=== PATIENT | female | born 1955 | race Caucasian/White ===

== ENCOUNTER 2019-12-20 06:37 | Outpatient (REF) | payer OTHER, SELFPAY ==
[2019-12-20 11:09] LABS: MANUAL DIFF FLAG NO
[2019-12-20 11:22] LABS: Basophils Percent Auto 0.4 % (0-2); Eosinophils Absolute Auto 0.2 X10*3/uL (0.0-0.4); Eosinophils Percent Auto 3.9 % (0-4); Hematocrit 43.1 % (37-47); Hemoglobin 14.1 g/dl (12.0-16.0); Imm Gran Abs Auto 0.02 X10*3/uL (0.00-0.03); Imm Gran Pct Auto 0.4 % (0.0-0.4); Lymphocytes Absolute Auto 1.4 X10*3/uL (1.2-4.9); Mean Corpuscular HGB Conc 32.7 g/dl (31.0-35.0); Mean Corpuscular Hemoglobin 31.6 pg (27.0-33.0); Mean Corpuscular Volume 96.6 fL (80-98); Mean Platelet Volume 9.4 fL (9.4-12.3); Monocytes Absolute Auto 0.5 X10*3/uL (0.1-1.2); Neutrophils Percent Auto 59.3 % (45-73); Platelet Count 252 X10*3/uL (160-400); Red Blood Count 4.46 X10*6/uL (4.20-5.50); Red Cell Distribution Width 13.1 % (11.0-16.0); White Blood Count 5.1 X10*3/uL (4.8-10.8)
[2019-12-20 11:45] LABS: Alanine Aminotransferase 12 U/L (0-31); Albumin Level 4.5 g/dL (3.5-5.0); Alkaline Phosphatase 66 U/L (39-117); Aspartate Amino Transferase 16 U/L (5-31); Bilirubin Direct 0.2 mg/dL (0.0-0.5); Bilirubin Total 0.4 mg/dL (0.0-1.0); Total Protein 6.9 g/dL (6.5-8.0)
[2019-12-21 07:32] LABS: Triiodothyronine T3 Total 83 ng/dL (76-181)
== END 2019-12-20 06:38 | disposition home or self-care (01) ==
LOC: HO.HMGCLDS 06:37
PROVIDERS: PCP Internal Medicine; Visit Provider Internal Medicine
DX: E05.00 Thyrotoxicosis with diffuse goiter without thyrotoxic crisis or storm (principal)
CPT/HCPCS: 36415; 80076; 84439; 84443; 84480; 85025

== ENCOUNTER → 2020-06-02 08:41 | Outpatient (BNVA) | payer OTHER, SELFPAY | PROVIDERS: PCP Internal Medicine; Visit Provider Surgery ==

== ENCOUNTER 2020-06-08 06:19 | Outpatient (REF) | payer OTHER, SELFPAY ==
[2020-06-08 12:02] LABS: Blood Urea Nitrogen 13 mg/dL (9-16); Estimated Glomerular Filt Rate > 60
[2020-06-08 12:15] LABS: Thyroid Stimulating Hormone 0.94 uIU/mL (0.32-4.0)
== END 2020-06-08 06:20 | disposition home or self-care (01) ==
LOC: HO.HMGCLDS 06:19
PROVIDERS: Visit Provider Surgery
DX: E05.00 Thyrotoxicosis with diffuse goiter without thyrotoxic crisis or storm (principal); R07.89 Other chest pain
CPT/HCPCS: 36415; 82565; 84443; 84520

== ENCOUNTER 2020-06-09 07:28 | Outpatient (REF) | payer OTHER, SELFPAY ==
--- NOTE | ~2020-06-09 | CT_ITS ---
EXAMINATION: CT CHEST WITH CONTRAST CLINICAL INFORMATION: Malignant neoplasm of unspecified site. COMPARISON: None. TECHNIQUE: Multidetector volumetric CT imaging of the chest was obtained after the administration of 65 mL of Omnipaque 350 intravenous contrast without immediate adverse reactions. Axial MIP volume rendering provided. Sagittal and coronal reformatted images were obtained. This CT examination was performed using dose optimization techniques as appropriate, variously including the following: *Automated exposure control *Adjustment of mA and/or kV according to patient size (this includes techniques or standardized protocols for targeted exams where dose is matched to indication/reason for exam; i.e. extremities or head) *Use of iterative reconstruction technique DLP: 135 mGy-cm. 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 LUNGS: Lungs are well expanded. There is right apical airspace disease suggestive of infiltrate. Underlying malignancy is strongly suspected as there is moderate extrathoracic soft tissue thickening along the right supra clavicular fossa. Rest of lungs are clear. MEDIASTINUM: The thyroid lobes are asymmetrical with left slightly larger. The central trachea and the bronchi widely patent. Heart size and the great vessels are normal caliber. No abnormal size mediastinal lymph nodes or mass seen. There is no pericardial effusion. PLEURA: There is moderate right apical pleural thickening. No evidence of effusion. AXILLA: No abnormal lymph nodes seen. There is evidence of right mastectomy and a left breast prosthesis. UPPER ABDOMEN: Visualized liver is diffusely attenuated. No focal lesion seen. There is no hepatomegaly. The spleen, pancreas and bilateral adrenal glands are unremarkable. OSSEOUS STRUCTURES: No lytic or sclerotic process seen. CT/CT chest w con IMPRESSION: Right apical airspace disease, likely infiltrate. In addition, there is a soft tissue density extending extrathoracic in the supraclavicular fossa suspicious for underlying mass. No bony destructive changes seen involving the 1st or 2nd ribs. Consider PET/CT exam by further evaluation. Right mastectomy with left breast prosthesis. No abnormal axillary or mediastinal lymph nodes.
== END 2020-06-09 07:29 | disposition home or self-care (01) ==
LOC: HO.CT 07:28
PROVIDERS: PCP Internal Medicine; Visit Provider Surgery
DX: C50.911 Malignant neoplasm of unspecified site of right female breast (principal); C50.912 Malignant neoplasm of unspecified site of left female breast; R07.89 Other chest pain
CPT/HCPCS: 71260; Q9967

== ENCOUNTER 2020-06-19 06:19 | Outpatient (REF) | payer OTHER, SELFPAY ==
[2020-06-19 12:28] LABS: Free T4 (Free Thyroxine) 0.96 ng/dL (0.71-1.85)
[2020-06-20 06:07] LABS: Triiodothyronine T3 Free 2.9 pg/mL (2.3-4.2)
[2020-06-24 00:12] LABS: FT4 by Equilib. Dialysis 1.6 ng/dL (0.9-2.2)
== END 2020-06-19 06:20 | disposition home or self-care (01) ==
LOC: HO.HMGCLDS 06:19
PROVIDERS: PCP Internal Medicine; Visit Provider Internal Medicine
DX: E05.00 Thyrotoxicosis with diffuse goiter without thyrotoxic crisis or storm (principal)
CPT/HCPCS: 36415; 84439; 84481

== ENCOUNTER → 2020-06-26 07:31 | Outpatient (BNVA) | payer OTHER, SELFPAY | PROVIDERS: PCP Internal Medicine; Referring Provider Internal Medicine; Visit Provider Internal Medicine ==

== ENCOUNTER 2020-06-27 06:20 | Outpatient (REF) | payer OTHER, SELFPAY ==
[2020-06-27 11:15] LABS: MANUAL DIFF FLAG NO
[2020-06-27 11:24] LABS: Basophils Percent Auto 0.7 % (0-2); Eosinophils Absolute Auto 0.2 X10*3/uL (0.0-0.4); Eosinophils Percent Auto 5.4 % (0-4); Hematocrit 41.9 % (37-47); Hemoglobin 13.7 g/dl (12.0-16.0); Imm Gran Abs Auto 0.02 X10*3/uL (0.00-0.03); Imm Gran Pct Auto 0.5 % (0.0-0.4); Lymphocytes Absolute Auto 1.7 X10*3/uL (1.2-4.9); Lymphocytes Percent Auto 39.6 % (20-40); Mean Corpuscular HGB Conc 32.7 g/dl (31.0-35.0); Mean Corpuscular Hemoglobin 31.6 pg (27.0-33.0); Mean Corpuscular Volume 96.8 fL (80-98); Monocytes Absolute Auto 0.4 X10*3/uL (0.1-1.2); Monocytes Percent Auto 8.9 % (2-11); Neutrophils Absolute Auto 1.9 X10*3/uL (2.0-8.3); Neutrophils Percent Auto 44.9 % (45-73); Platelet Count 238 X10*3/uL (160-400); Red Blood Count 4.33 X10*6/uL (4.20-5.50); Red Cell Distribution Width 12.5 % (11.0-16.0); White Blood Count 4.3 X10*3/uL (4.8-10.8)
[2020-06-27 11:55] LABS: Alanine Aminotransferase 15 U/L (0-31); Albumin Level 4.2 g/dL (3.5-5.0); Alkaline Phosphatase 64 U/L (39-117); Anion Gap 12 (12-20); Aspartate Amino Transferase 17 U/L (5-31); Bilirubin Total 0.5 mg/dL (0.0-1.0); Blood Urea Nitrogen 15 mg/dL (9-16); Calcium 9.1 mg/dL (8.4-10.2); Carbon Dioxide 28 mmol/L (22-29); Chloride 104 mmol/L (96-108); Estimated Glomerular Filt Rate > 60; Glucose Random 82 mg/dL (60-115); Sodium 140 mmol/L (135-145); Total Protein 6.6 g/dL (6.5-8.0)
[2020-06-27 12:03] LABS: Erythrocyte Sedimentation Rate 13 MM/HR (0-20)
[2020-06-28 12:32] LABS: CA 27.29 25 U/mL (<38)
== END 2020-06-27 06:21 | disposition home or self-care (01) ==
LOC: HO.HMGCLDS 06:20
PROVIDERS: PCP Internal Medicine; Visit Provider Internal Medicine Medical Oncology
DX: R63.6 Underweight (principal); C50.912 Malignant neoplasm of unspecified site of left female breast; C50.911 Malignant neoplasm of unspecified site of right female breast
CPT/HCPCS: 36415; 80053; 85025; 85652; 86300

== ENCOUNTER 2020-08-01 07:35 | Outpatient (REF) | payer OTHER, SELFPAY ==
--- NOTE | ~2020-08-01 | US_ITS ---
EXAMINATION: US THYROID CLINICAL INFORMATION: Nontoxic single thyroid nodule. COMPARISON: Ultrasound soft tissue head/neck thyroid dated 09/23/2018. TECHNIQUE: Linear transducer grayscale and color Doppler examination with attention to the region of the thyroid. FINDINGS: SIZE: Measurements of the thyroid lobes and nodules are given in sagittal, anteroposterior and transverse dimensions respectively. Right Thyroid Lobe: 3.9 x 1.2 x 1.2 cm, volume 2.9 mL. Previously 4.1 x 1.0 x 1.3 cm, volume 2.7 mL. Parenchyma: The gland echotexture is slightly heterogeneous. Thyroid vascularity is increased. Left Thyroid Lobe: 5.1 x 1.5 x 1.9 cm, volume 7.6 mL. Previously 5.1 x 1.3 x 2.3 cm, volume 7.7 mL. Parenchyma: The gland echotexture is slightly heterogeneous. Thyroid vascularity is increased. Isthmus: 0.3 cm in maximum AP dimension. Previously 0.2 cm. Estimated total number of nodules greater than or equal to 1 cm: 0. 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 Location: Left mid. Size: 0.76 x 0.42 x 0.62 cm, volume 0.10 mL. Previously: 0.7 x 0.4 x 0.6 cm, volume 0.08 mL. Nodule characteristics: Composition: Mixed cystic and solid (1). Echogenicity: Hypoechoic (2). Shape: Not taller than wide (0). Margins: Smooth (0). Echogenic Foci: None (0). ACR TI-RADS total points: 3 Previous: n/a ACR TI-RADS category: 3 Previous: n/a Significant change in size (>/= 20% in 2 dimensions and minimal increase of 2 mm or 50% or greater increase in volume): No Change in features: No Change in ACR TI-RADS risk category: n/a NODES: No lymphadenopathy is seen in the tissue surrounding the thyroid gland. US/US thyroid IMPRESSION: Slightly heterogeneous hypervascular thyroid gland. The left lobe is larger than the right similar to previous exam Stable solitary left nodule from 2019. ACR TI-RADS RECOMMENDATION REFERENCE: Ultrasound-guided fine-needle aspiration, followup ultrasound, no further follow up. * TR1 (0 point) and TR 2 (2 points): No FNA or follow up * TR3 (3 points): FNA if more than or equal to 2.5 cm in maximum dimension, followup ultrasound in 1, 3 and 5 years if 1.5 to 2.4 cm in maximum dimension. * TR4 (4-6 points): FNA if more than or equal to 1.5 cm in maximum dimension, followup ultrasound in 1, 2, 3 and 5 years if 1 to 1.4 cm in maximum dimension. * TR5 (more than or equal to 7 points): FNA if more than or equal to 1 cm in maximum dimension, followup ultrasound every year for 5 years if 0.5 to 0.9 cm in maximum dimension. * TR3, TR4 or TR5 nodules that are below the size threshold for follow up receive no follow up.
== END 2020-08-01 07:36 | disposition home or self-care (01) ==
LOC: HO.US 07:35
PROVIDERS: PCP Internal Medicine; Visit Provider Internal Medicine
DX: E04.1 Nontoxic single thyroid nodule (principal); E05.00 Thyrotoxicosis with diffuse goiter without thyrotoxic crisis or storm
CPT/HCPCS: 76536

== ENCOUNTER 2020-09-08 06:05 | Outpatient (REF) | payer OTHER, SELFPAY ==
[2020-09-08 11:26] LABS: MANUAL DIFF FLAG NO
[2020-09-08 11:37] LABS: Basophils Percent Auto 0.4 % (0-2); Eosinophils Absolute Auto 0.2 X10*3/uL (0.0-0.4); Eosinophils Percent Auto 4.5 % (0-4); Hematocrit 43.3 % (37-47); Hemoglobin 14.6 g/dl (12.0-16.0); Imm Gran Abs Auto 0.01 X10*3/uL (0.00-0.03); Imm Gran Pct Auto 0.2 % (0.0-0.4); Lymphocytes Absolute Auto 1.5 X10*3/uL (1.2-4.9); Lymphocytes Percent Auto 30.2 % (20-40); Mean Corpuscular HGB Conc 33.7 g/dl (31.0-35.0); Mean Corpuscular Hemoglobin 31.8 pg (27.0-33.0); Mean Corpuscular Volume 94.3 fL (80-98); Mean Platelet Volume 9.5 fL (9.4-12.3); Monocytes Absolute Auto 0.5 X10*3/uL (0.1-1.2); Neutrophils Absolute Auto 2.8 X10*3/uL (2.0-8.3); Neutrophils Percent Auto 54.7 % (45-73); Platelet Count 263 X10*3/uL (160-400); Red Blood Count 4.59 X10*6/uL (4.20-5.50); Red Cell Distribution Width 12.7 % (11.0-16.0); White Blood Count 5.1 X10*3/uL (4.8-10.8)
[2020-09-08 12:01] LABS: Alanine Aminotransferase 10 U/L (0-31); Albumin Level 4.3 g/dL (3.5-5.0); Alkaline Phosphatase 61 U/L (39-117); Anion Gap 14 (12-20); Aspartate Amino Transferase 16 U/L (5-31); Bilirubin Total 0.5 mg/dL (0.0-1.0); Blood Urea Nitrogen 12 mg/dL (9-16); Calcium 9.6 mg/dL (8.4-10.2); Carbon Dioxide 25 mmol/L (22-29); Chloride 105 mmol/L (96-108); Cholesterol 253 mg/dL; Estimated Glomerular Filt Rate > 60; Glucose Fasting 94 mg/dL (60-99); HDL Cholesterol 86 mg/dL; LDL Cholesterol Calculated 151 mg/dl; Potassium 4.1 mmol/L (3.3-5.1); Sodium 140 mmol/L (135-145); Total Protein 6.9 g/dL (6.5-8.0); Triglycerides 81 mg/dL
== END 2020-09-08 06:06 | disposition home or self-care (01) ==
LOC: HO.HMGCLDS 06:05
PROVIDERS: PCP Internal Medicine; Visit Provider Internal Medicine
DX: Z00.00 Encounter for general adult medical examination without abnormal findings (principal); E11.9 Type 2 diabetes mellitus without complications
CPT/HCPCS: 36415; 80053; 80061; 85025

== ENCOUNTER 2020-09-18 06:41 | Outpatient (REF) | payer OTHER, SELFPAY ==
[2020-09-18 12:14] LABS: Free T4 (Free Thyroxine) 0.92 ng/dL (0.71-1.85); Thyroid Stimulating Hormone 0.73 uIU/mL (0.32-4.0); Vitamin D 25-OH Total 25.1 ng/mL (>30)
[2020-09-19 12:41] LABS: Triiodothyronine T3 Total 101 ng/dL (76-181)
== END 2020-09-18 06:42 | disposition home or self-care (01) ==
LOC: HO.HMGCLDS 06:41
PROVIDERS: PCP Internal Medicine; Visit Provider Internal Medicine
DX: E05.00 Thyrotoxicosis with diffuse goiter without thyrotoxic crisis or storm (principal); E55.9 Vitamin D deficiency, unspecified
CPT/HCPCS: 36415; 82306; 84439; 84443; 84480

== ENCOUNTER → 2020-09-25 08:03 | Outpatient (BNVA) | payer OTHER, SELFPAY | PROVIDERS: PCP Internal Medicine; Visit Provider Internal Medicine ==

== ENCOUNTER 2021-02-14 07:47 | Day surgery (SDC) | payer OTHER, SELFPAY ==
[2021-02-08 11:39] VITALS: BMI 19.7
--- NOTE | 2021-02-13 12:03 | P.CONAN_ITS ---
Documented by User: Dena Hill NP 02/13/21 12:06 HPI - Anesthesia Eval Consult details Narrative: 65yo F for Colonoscopy Pt request scop path for h/o PONV PMFSH Active Problems Active Problems: All Active Problems (Updated 02/08/21 @ 11:39 by Florina Branch, RN) Bilateral breast cancer (Acute) Chest wall discomfort (Acute) Vitamin D deficiency (Acute) Panic disorder (Acute) Neutropenia (Acute) Thyroid nodule (Acute) Graves disease (Acute) Past Medical History Medical History (Updated 02/08/21 @ 11:39 by Florina Branch, RN) Abdominal pain Breast cancer COVID-19 vaccine series completed Depression GERD (gastroesophageal reflux disease) Graves disease IBS (irritable bowel syndrome) Neutropenia Panic disorder PONV (postoperative nausea and vomiting) Smoker Thyroid nodule Vitamin D deficiency Family History Family History Father Throat cancer Mother Lung cancer Maternal Grandmother Breast cancer Surgical History Surgical History (Updated 02/07/21 @ 16:08 by Florina Branch RN) History of bilateral mastectomy History of removal of right breast implant Hx of colonoscopy Hx of esophagogastroduodenoscopy S/P breast implant, left Social History Social History Housing: Condominium Are you a primary child care associate to a significant other at home: No Do you presently have visiting nurse or other home services: No Alcohol intake: never Patient Tobacco Use Status: Current everyday Tobacco user Tobacco use type: Cigarette Cigarette Packs Per Day: 1 Cigarettes Per Day: 20.0 Years Smoked: 45 Smoked in Last 30 Days: Yes e-Cigarette/Vaping Use: Never Used Patient Interested in Nicotine Replacement: No Second Hand Smoke Exposure: No Use of substances other than those prescribed or required for medical reasons: No Have you been hit, kicked, punched, or otherwise hurt by someone within the past year? If so, by whom?: No Are you DNR?: No Advance Directives: No Advance Directives Information Provided: No Advance Directives on File: No Recently lost weight without trying: No Eating poorly because of decreased appetite: No Patient : No service: No Current occupational status: employed Meds Allergies Allergy/AdvReac Type Severity Reaction Status Date / Time benzoin Allergy Unknown Rash Verified 02/08/21 11:38 fluoxetine [Prozac] Allergy Unknown Hives Verified 02/08/21 11:38 hydrocodone [From VICODIN] AdvReac Intermediate AGITATION Verified 02/08/21 11:38 oxycodone [From Percocet] AdvReac Mild AGITATION Verified 02/08/21 11:38 steri strips Allergy Unknown Unknown Uncoded 02/08/21 11:38 Exam Exam Date and Time: February 13, 2021 1203 Height,Weight and Vital Signs: Height 5 ft 6 in Weight 55.338 kg Pertinent Lab Results Pertinent Lab Results: Laboratory Tests 09/08/20 09/08/20 06:14 06:14 WBC 5.1 Hgb 14.6 Hct 43.3 Plt Count 263 Sodium 140 Potassium 4.1 Chloride 105 Carbon Dioxide 25 BUN 12 Creatinine 0.71 Assessment and Plan Assessment Anesthesia Assessment: Chart Reviewed Documented by User: Isaias Dawson 02/14/21 08:35 PMFSH Past Medical History Medical History (Updated 02/08/21 @ 11:39 by Florina Branch, ALEKSANDR) Abdominal pain Breast cancer COVID-19 vaccine series completed Depression GERD (gastroesophageal reflux disease) Graves disease IBS (irritable bowel syndrome) Neutropenia Panic disorder PONV (postoperative nausea and vomiting) Smoker Thyroid nodule Vitamin D deficiency Functional capacity: independent ambulation Family History Family History Father Throat cancer Mother Lung cancer Maternal Grandmother Breast cancer Family history of problems with anesthesia: No Surgical History Surgical History (Updated 02/07/21 @ 16:08 by Florina Branch, RN) History of bilateral mastectomy History of removal of right breast implant Hx of colonoscopy Hx of esophagogastroduodenoscopy S/P breast implant, left History of Problems with Anesthesia: Yes (Ponv ) Social History Social History (Reviewed 09/25/20 @ 09:23 by CURT Rivera [facility] Are you a primary child care associate to a significant other at home: No Do you presently have visiting nurse or other home services: No Alcohol intake: never Patient Tobacco Use Status: Current everyday Tobacco user Tobacco use type: Cigarette Cigarette Packs Per Day: 1 Cigarettes Per Day: 20.0 Years Smoked: 45 Smoked in Last 30 Days: Yes e-Cigarette/Vaping Use: Never Used Patient Interested in Nicotine Replacement: No Second Hand Smoke Exposure: No Use of substances other than those prescribed or required for medical reasons: No Have you been hit, kicked, punched, or otherwise hurt by someone within the past year? If so, by whom?: No Are you DNR?: No Advance Directives: No Advance Directives Information Provided: No Advance Directives on File: No Recently lost weight without trying: No Eating poorly because of decreased appetite: No Patient : No service: No Current occupational status: employed Meds Allergies Allergy/AdvReac Type Severity Reaction Status Date / Time benzoin Allergy Unknown Rash Verified 02/08/21 11:38 fluoxetine [Prozac] Allergy Unknown Hives Verified 02/08/21 11:38 hydrocodone [From VICODIN] AdvReac Intermediate AGITATION Verified 02/08/21 11:38 oxycodone [From Percocet] AdvReac Mild AGITATION Verified 02/08/21 11:38 steri strips Allergy Unknown Unknown Uncoded 02/08/21 11:38 Exam Airway Mallampati Class: III TM Dist: >3cm Neck ROM: Full Loose/Missing/Broken Teeth: Yes (Crowns ) Heart: rrr Lungs: bl breath sounds Assessment and Plan Final Anesthetic Review Family History of Problems with Anesthesia: No History of Problems with Anesthesia: Yes (Ponv ) ASA Class: II Final Preanesthetic Review: Anes Risks/Benef Reviewed Patient Risk: Intermediate Procedure Risk: Intermediate Anesthetic Plan Anesthetic Plan: MAC: Disposition: Standard PACU
[2021-02-14 08:04] VITALS: BP 98/52; PULSE 74; RESP 16; TEMP 36.6; O2SAT 97
[2021-02-14] MEDS: Scopolamine 1.5 MG PATCH.TD.3 TRANSDERMA (08:24)
[2021-02-14] MEDS: Lactated Ringers 1,000 ML 100 ML IVCONT (08:24)
[2021-02-14 10:28] VITALS: BP 102/56; PULSE 68; RESP 16; TEMP 36.1; O2SAT 99
--- NOTE | 2021-02-14 10:28 | PM.OP ---
Brief Operative Note Date of Service: 02/14/21 Pre-op diagnosis: Screening Post-op diagnosis: other (R/O microscopic colitis, Diverticulosis) Procedure: Colonoscopy to the cecum and TI with biopsies Surgeon: Chad Calvillo Anesthesia: MAC Was an High School Music Teacher used for this Procedure?: No Estimated blood loss (mL): 2.0 Pathology: other (A. Ascending colon B. Descending colon) Condition: stable Disposition: PACU
[2021-02-14 10:43] VITALS: BP 121/71; PULSE 65; RESP 17; TEMP 36.1; O2SAT 99
--- NOTE | 2021-02-14 10:47 | OP_ITS ---
SURGEON: Chad Calvillo MD INDICATIONS: The patient presents for evaluation of colorectal cancer screening as well as underlying irritable bowel syndrome and intermittent diarrhea. Full consent has been obtained from her for this, including risks of bleeding and perforation. PREOPERATIVE DIAGNOSIS: POSTOPERATIVE DIAGNOSIS: PROCEDURE PERFORMED: Colonoscopy to cecum and terminal ileum with biopsies. ESTIMATED BLOOD LOSS: COMPLICATIONS: ANESTHESIA: Monitored anesthesia care. ASSISTANTS: SPECIMENS: PREOPERATIVE DIAGNOSES: Colorectal cancer screening and history of irritable bowel syndrome and diarrhea. POSTOPERATIVE DIAGNOSES: Colorectal cancer screening and history of irritable bowel syndrome and diarrhea, diverticulosis, rule out microscopic colitis, internal hemorrhoids. DESCRIPTION OF PROCEDURE: The patient was placed in the left lateral decubitus position. The digital rectal exam revealed no abnormalities. The Olympus video pediatric colonoscope was entered into the rectum and advanced to the cecum with the assistance of abdominal wall pressure. Once in the cecum, I did identify normal-appearing cecal pouch with appendiceal orifice and a normal-appearing ileocecal valve. The terminal ileum was cannulated and appeared normal. Scope was withdrawn back in the colon. The entire cecum and ileocecal valve appeared normal. The scope was slowly withdrawn assessing all mucosal surfaces carefully. Preparation was excellent. I did not visualize any sign of polyps, colitis, nor angiodysplasia. There was a mild amount of sigmoid diverticulosis. Random biopsies were obtained in the ascending and descending colon. In the rectum, scope was retroflexed visualizing small internal hemorrhoids, but no other pathology. The rectal mucosa appeared normal. The scope was straightened out and withdrawn from the patient. She tolerated the procedure well and was returned to recovery area in stable condition. IMPRESSION: 1. Mild sigmoid diverticulosis. 2. Internal hemorrhoids. 3. Rule out microscopic colitis. PLAN: The results of biopsies will be checked. I would recommend a repeat colonoscopy in 10 years for further screening. She will continue to use Imodium as needed for any diarrhea. She will see me otherwise on a p.r.n. basis. MD LISET Samano/LAURIE / [id number]
== END 2021-02-14 11:15 | disposition home or self-care (01) ==
PROVIDERS: PCP Internal Medicine; Visit Provider Internal Medicine
PROC: 0DJD8ZZ Inspection of Lower Intestinal Tract, Via Natural or Artificial Opening Endoscopic (ICD-10-PCS; CPT 45378; principal; 2021-02-14 09:20)
DX: Z12.11 Encounter for screening for malignant neoplasm of colon (principal); K57.30 Diverticulosis of large intestine without perforation or abscess without bleeding; K58.0 Irritable bowel syndrome with diarrhea; K64.8 Other hemorrhoids; K21.9 Gastro-esophageal reflux disease without esophagitis; E05.00 Thyrotoxicosis with diffuse goiter without thyrotoxic crisis or storm; F32.9 Major depressive disorder, single episode, unspecified; E55.9 Vitamin D deficiency, unspecified; Z85.3 Personal history of malignant neoplasm of breast; Z90.13 Acquired absence of bilateral breasts and nipples; Z83.79 Family history of other diseases of the digestive system; Z79.899 Other long term (current) drug therapy; F17.210 Nicotine dependence, cigarettes, uncomplicated
CPT/HCPCS: 45380; 88305

== ENCOUNTER 2021-03-26 06:09 | Outpatient (REF) | payer OTHER, SELFPAY ==
--- NOTE | ~2021-03-26 | XR_ITS ---
EXAMINATION: XR SHOULDER, RIGHT CLINICAL INFORMATION: Pain COMPARISON: Previous chest CT June 2020 TECHNIQUE: AP external rotation, Grashey, scapular Y, and axillary views of the right shoulder. FINDINGS: Bone alignment is normal. No fracture or dislocation is seen. There is mild arthritis at the glenohumeral joint and moderate arthritis at the acromioclavicular joint. Soft tissues are unremarkable. There is a pleural thickening at the right lung apex. This is similar to previous CT scan June 2020. XR/XR shoulder RT min 2V IMPRESSION: Degenerative changes.
[2021-03-26 11:34] LABS: MANUAL DIFF FLAG NO
[2021-03-26 11:43] LABS: Basophils Percent Auto 0.6 % (0-2); Eosinophils Absolute Auto 0.2 X10*3/uL (0.0-0.4); Hematocrit 43.5 % (37.0-47.0); Hemoglobin 14.4 g/dl (12.0-16.0); Imm Gran Abs Auto 0.01 X10*3/uL (0.00-0.03); Imm Gran Pct Auto 0.2 % (0.0-0.4); Lymphocytes Absolute Auto 1.6 X10*3/uL (1.2-4.9); Mean Corpuscular HGB Conc 33.1 g/dl (31.0-35.0); Mean Corpuscular Hemoglobin 31.8 pg (27.0-33.0); Mean Platelet Volume 9.4 fL (9.4-12.3); Monocytes Absolute Auto 0.6 X10*3/uL (0.1-1.2); Monocytes Percent Auto 10.7 % (2-11); Neutrophils Absolute Auto 2.8 x10*3/uL (2.0-8.3); Neutrophils Percent Auto 53.5 % (45-73); Platelet Count 262 X10*3/uL (160-400); Red Blood Count 4.53 X10*6/uL (4.20-5.50); Red Cell Distribution Width 12.7 % (11.0-16.0); White Blood Count 5.2 X10*3/uL (4.8-10.8)
[2021-03-26 12:38] LABS: Alanine Aminotransferase 10 U/L (0-31); Albumin Level 4.1 g/dL (3.5-5.0); Alkaline Phosphatase 68 U/L (39-117); Anion Gap 12 (12-20); Aspartate Amino Transferase 14 U/L (5-31); Bilirubin Total 0.4 mg/dL (0.0-1.0); Blood Urea Nitrogen 14 mg/dL (9-16); Calcium 9.6 mg/dL (8.4-10.2); Carbon Dioxide 28 mmol/L (22-29); Chloride 105 mmol/L (96-108); Cholesterol 255 mg/dL; Estimated Glomerular Filt Rate > 60; Glucose Fasting 86 mg/dL (60-99); HDL Cholesterol 71 mg/dL; LDL Cholesterol Calculated 165 mg/dl; Potassium 4.1 mmol/L (3.3-5.1); Sodium 141 mmol/L (135-145); Total Protein 6.6 g/dL (6.5-8.0); Triglycerides 97 mg/dL
== END 2021-03-26 06:10 | disposition home or self-care (01) ==
LOC: HO.HMGCLDS 06:09
PROVIDERS: PCP Internal Medicine; Visit Provider Internal Medicine
DX: Z00.00 Encounter for general adult medical examination without abnormal findings (principal); Z13.0 Encounter for screening for diseases of the blood and blood-forming organs and certain disorders involving the immune mechanism; M25.511 Pain in right shoulder
CPT/HCPCS: 36415; 73030; 80053; 80061; 84443; 85025

== ENCOUNTER → 2021-06-15 08:51 | Outpatient (BNVA) | payer MEDICARE, SELFPAY | PROVIDERS: PCP Internal Medicine; Referring Provider Internal Medicine; Visit Provider Surgery | DX: C50.911 Malignant neoplasm of unspecified site of right female breast (principal); C50.912 Malignant neoplasm of unspecified site of left female breast; R07.89 Other chest pain | CPT/HCPCS: 99212 ==

== ENCOUNTER 2021-06-27 06:26 | Outpatient (REF) | payer MEDICARE, SELFPAY ==
--- NOTE | ~2021-06-27 | XR_ITS ---
EXAMINATION: XR LUMBOSACRAL SPINE CLINICAL INFORMATION: Pain COMPARISON: None TECHNIQUE: Three views of the lumbosacral spine. FINDINGS: There is mild curvature of the lower lumbar spine to the right. Bone alignment is otherwise normal. No fracture or dislocation is seen. Disc spaces are normal. There is lower lumbar spine facet arthritis. There are small calcifications projecting over the left kidney questionable for stones. XR/XR lumbar spine 2-3V IMPRESSION: Mild scoliosis and degenerative change. Question small left renal stones.
== END 2021-06-27 06:27 | disposition home or self-care (01) ==
LOC: HO.XRAY 06:26
PROVIDERS: PCP Internal Medicine; Visit Provider Internal Medicine
DX: M54.9 Dorsalgia, unspecified (principal); N20.0 Calculus of kidney
CPT/HCPCS: 72100

== ENCOUNTER 2021-07-11 14:30 | Outpatient (RCR) | payer MEDICARE, SELFPAY ==
[2021-07-10 10:00] VITALS: BP 112/70; PULSE 67; O2SAT 98
--- NOTE | 2021-07-10 10:48 | MHC.PT.EP ---
[facility] [place] Office [place] [facility] [place] [facility] [address] [place] [address] [phone] F: [phone] F: [phone] F: [phone] F: [phone] Physical Therapy Plan of Care Date of Evaluation: Date of Surgery: Diagnosis: This is a 66 yo female presenting to skilled PT with a script for dizziness and giddiness. Assessment: This is a 66 yo female presenting to skilled PT with a script for dizziness and giddiness. Her symptoms have been ongoing for 2-3 months now, she has been trying to self tx herself with the ben scales technique. Her symptoms increase when she lays on her back or looks up. She describes her symptoms as the room spinning. She has had vertigo in the past and was tx'd vis chiro. She had breast surgery 7-8 years ago and since then she gets vertigo 2-3 times a year. Examination shows normal oculomotor tests except for horizontal saccades, ? head thrust but patient having a hard time with cues to relax during test, (-) VBI B, and WFL cervical AROM. She was (+) for BPPV with john-hallpike and R kash maneuver which was improved s/p tx. Assessment of balance at [facility] was normal but she could use BLE strengthening and balance work (which she has a new script for when we are finished with vertigo tx). S/S consistent with R PC BPPV and would benefit from PT 2x/wk for 4wks to address impairments, implement HEP and optimize functional mobility. Educated her to hold self tx at this time. Frequency and Duration: The patient will be seen 2x/wk for 4wks Short Term Goals: reassess canals Alf Goals: I in HEP No nystagmus or symptoms in any testing positions No LOB noted and normal scores on balance tests Return to work in full Treatment Plan: Modalities to reduce pain, spasms and effusion. Manual therapy to restore motion and function. Therapeutic exercise to improve strength and flexibility. Neuromuscular re-education for posture and balance. Therapeutic activities to return to functional activities of daily living. Electronically signed by: Diana Gregory PT Please sign and return to therapist. Thank you for your referral.
--- NOTE | 2021-08-10 15:29 | MHC.PT.DC ---
[facility] [place] Office [place] Office [place] Office [address] [place] [place] [address] [phone] F: [phone] F: [phone] F: [phone] F: [phone] Physical Therapy Discharge Report Diagnosis: This is a 66 yo female presenting to skilled PT with a script for dizziness and giddiness. Date of Surgery: Date of Evaluation: 07/10/21 Date of Discharge: 08/10/21 Treatments to Date: 2 Cancellations to Date: 0 No Shows to Date: 0 Discharge Status: Achieved Goals Improved Function Independent with HEP Discharge Summary: At her last appointment Florina was now negative on the R PC but was + on the L. I performed an kash, she had nystagmus that was quick but short lived. She was dizzy and fearful on the roll for tx (utilized a second pair of hands to help steady her). She also became nauseous, lightheaded, pale and sweaty. This resolved with time, utilized ice pack, she did not vomit. I performed a second kash on the L which was negative but she was still fearful on the roll. She was clear in all 4 canals as she departed from the clinic. Scheduled her one more follow up for Friday to make sure she is clear going into the weekend but patient called and reported feeling much better and cancelled appointment. This is a 66 yo female presenting to skilled PT with a script for dizziness and giddiness. Her symptoms have been ongoing for 2-3 months now, she has been trying to self tx herself with the ben scales technique. Her symptoms increase when she lays on her back or looks up. She describes her symptoms as the room spinning. She has had vertigo in the past and was tx'd vis chiro. She had breast surgery 7-8 years ago and since then she gets vertigo 2-3 times a year. Examination shows normal oculomotor tests except for horizontal saccades, ? head thrust but patient having a hard time with cues to relax during test, (-) VBI B, and WFL cervical AROM. She was (+) for BPPV with john-hallpike and R kash maneuver which was improved s/p tx. Assessment of balance at [facility] was normal but she could use BLE strengthening and balance work (which she has a new script for when we are finished with vertigo tx). S/S consistent with R PC BPPV and would benefit from PT 2x/wk for 4wks to address impairments, implement HEP and optimize functional mobility. Educated her to hold self tx at this time. Electronically signed by: Diana Gregory, PT Please sign and return to therapist. Thank you for your referral.
== END 2021-08-10 15:30 | disposition home or self-care (01) ==
LOC: HO.PTCHIC 14:30
PROVIDERS: PCP Internal Medicine; Visit Provider Internal Medicine
DX: R42 Dizziness and giddiness (principal)
CPT/HCPCS: 95992; 97162

== ENCOUNTER 2021-08-13 07:00 | Outpatient (RCR) | payer MEDICARE, SELFPAY ==
--- NOTE | 2021-07-18 09:54 | MHC.PT.EP ---
[facility] [place] [facility] [place] [facility] [place] Office [address] [place] [address] [phone] F: [phone] F: [phone] F: [phone] F: [phone] Physical Therapy Plan of Care Date of Evaluation: Date of Surgery: n/a Diagnosis: dorsalgia Assessment: Patient is a 66 year old R handed female who presents with s/s consistent with dorsalgia. She is retired and spends her days tending to her home and running errands. Patient past medical history includes breast cancer and recent treatment for vertigo. Current impairments include pain, posture, ROM, strength, activity tolerance and functional mobility. Functional limitations include decreased ability to sleep, stand, sit, bend, lift, carry, and walk longer distances. Patient is motivated with good rehab potential. Skilled PT will address impairments and functional limitations in order to achieve goals. Frequency and Duration: The patient will be seen 2x/week for 5 weeks Short Term Goals: I with HEP - 2 weeks TTP absent - 3 weeks Demo proper floor to waist lift mechanics - 3 weeks [facility] Goals: Oswestry 8% - 5 weeks Return to PLOF pain free - 5 weeks Hip strength 4+/5 grossly - 5 weeks Lumbar rotation 100% b/l pain free - 5 weeks Treatment Plan: Modalities to reduce pain, spasms and effusion. Manual therapy to restore motion and function. Therapeutic exercise to improve strength and flexibility. Neuromuscular re-education for posture and balance. Therapeutic activities to return to functional activities of daily living. Electronically signed by: Александр Wolfe, PT Please sign and return to therapist. Thank you for your referral.
--- NOTE | 2021-11-22 10:46 | MHC.PT.DC ---
[facility] Office [place] Office [place] Office [address] [place] [address] [phone] F: [phone] F: [phone] F: [phone] F: [phone] Physical Therapy Discharge Report Diagnosis: dorsalgia Date of Surgery: n/a Date of Evaluation: 07/18/21 Date of Discharge: 08/24/21 Treatments to Date: 5 Cancellations to Date: No Shows to Date: Discharge Status: Improved Function Independent with HEP Discharge Summary: 08/13/21: pt is I with HEP. TTP absent. good body mechanics throughout. Pain free PLOF. Hip strength 4+/5 grossly. She is appropriate to d/c to HEP at this time. 08/10/21: pt with little to no s/s at this time. she has been feeling better overall in the AM and has been compliant with HEP. 08/08/21: pt notes compliance with HEP with significantly less s/s as a result. we will continue with current program 1 more week with likely d/c to HEP at that point. 08/01/21: i printed an HEP specific for days like today where pt feels a little achy and sore in the AM. She has appropriate bands for completion of this. She has reduced s/s at end of treatment. 07/26/21: pt progressing well with skilled PT for hip and core strength. re-issued updated HEP today with instructions for performance at home. pt has bands as well. we will continue to progress as tolerated. 07/24/21: pt progressed with stretching and core/hip strength today. assess response before progressing HEP. Patient is a 66 year old R handed female who presents with s/s consistent with dorsalgia. She is retired and spends her days tending to her home and running errands. Patient past medical history includes breast cancer and recent treatment for vertigo. Current impairments include pain, posture, ROM, strength, activity tolerance and functional mobility. Functional limitations include decreased ability to sleep, stand, sit, bend, lift, carry, and walk longer distances. Patient is motivated with good rehab potential. Skilled PT will address impairments and functional limitations in order to achieve goals. Electronically signed by: Александр Wolfe PT Please sign and return to therapist. Thank you for your referral.
== END 2021-11-22 10:46 | disposition home or self-care (01) ==
LOC: HO.PTCHIC 07:00
PROVIDERS: PCP Internal Medicine; Visit Provider Internal Medicine
DX: M54.9 Dorsalgia, unspecified (principal)
CPT/HCPCS: 97110; 97162

== ENCOUNTER 2021-09-17 06:50 | Outpatient (REF) | payer MEDICARE, SELFPAY ==
[2021-09-17 12:00] LABS: Free T4 (Free Thyroxine) 0.92 ng/dL (0.71-1.85); Thyroid Stimulating Hormone 1.19 uIU/mL (0.32-4.0); Vitamin D 25-OH Total 45.3 ng/mL (>30)
[2021-09-19 06:41] LABS: Triiodothyronine T3 Total 105 ng/dL (76-181)
== END 2021-09-17 06:51 | disposition home or self-care (01) ==
LOC: HO.HMGCLDS 06:50
PROVIDERS: Visit Provider Internal Medicine
DX: E05.00 Thyrotoxicosis with diffuse goiter without thyrotoxic crisis or storm (principal); E55.9 Vitamin D deficiency, unspecified
CPT/HCPCS: 36415; 82306; 84439; 84443; 84480

== ENCOUNTER 2021-09-21 08:14 | Outpatient (REF) | payer MEDICARE, SELFPAY ==
--- NOTE | ~2021-09-21 | US_ITS ---
EXAMINATION: US RETROPERITONEAL LIMITED (RENAL ONLY) CLINICAL INFORMATION: Calculus of kidney. COMPARISON: Ultrasound abdomen complete 03/25/2016. TECHNIQUE: Real-time imaging of the kidneys. FINDINGS: RIGHT KIDNEY: 12.3 x 4.1 x 5.1 cm (SAG x AP x TRV). The kidney is normal in size, contour, and echogenicity. Renal cortical thickness is normal. No focal parenchymal lesions or hydronephrosis. At the interpolar aspect, a 2 mm nonobstructing calculus is seen, with twinkle artifact. LEFT KIDNEY: 11.6 x 4.6 x 5.6 cm (SAG x AP x TRV). The kidney is normal in size, contour, and echogenicity. Renal cortical thickness is normal. No calculi or focal parenchymal lesions. No hydronephrosis. US/US renal BI IMPRESSION: A 2 mm nonobstructing right calculus is seen. No left renal calculus is seen. There is no hydronephrosis noted bilaterally.
--- NOTE | ~2021-09-21 | US_ITS ---
EXAMINATION: US THYROID CLINICAL INFORMATION: Nontoxic single thyroid nodule. COMPARISON: Ultrasound soft tissue head/neck thyroid dated 08/01/2020 and 09/23/2018. TECHNIQUE: Linear transducer grayscale and color Doppler examination with attention to the region of the thyroid. FINDINGS: SIZE: Measurements of the thyroid lobes and nodules are given in sagittal, anteroposterior and transverse dimensions respectively. Right Thyroid Lobe: 4.18 x 1.11 x 0.99 cm, volume 2.4 mL. Previously 3.9 x 1.2 x 1.2 cm, volume 2.9 mL. Parenchyma: The gland echotexture is homogeneous. Thyroid vascularity is increased. Left Thyroid Lobe: 5.04 x 1.37 x 1.97 cm, volume 7.09 mL. Previously 5.1 x 1.5 x 1.9 cm, volume 7.6 mL. Parenchyma: The gland echotexture is homogeneous. Thyroid vascularity is increased. Isthmus: 0.32 cm in maximum AP dimension. Previously 0.30 cm. Estimated total number of nodules greater than or equal to 1 cm: 0. Study Specialist nodules are described as follows: 1. Location: Left mid/inferior. Size: 0.8 x 0.5 x 0.7 cm, volume 0.13 mL. Previously: 0.8 x 0.4 x 0.6 cm, volume 0.1 mL. Nodule characteristics: Composition: Mixed cystic and solid (1). Echogenicity: Hypoechoic (2). Shape: Not taller than wide (0). Margins: Smooth (0). Echogenic Foci: None (0). ACR TI-RADS total points: 3 Previous: 3 ACR TI-RADS category: 3 Previous: 3 Significant change in size (>/= 20% in 2 dimensions and minimal increase of 2 mm or 50% or greater increase in volume): No Change in features: No Change in ACR TI-RADS risk category: No NODES: No lymphadenopathy is seen in the tissue surrounding the thyroid gland. US/US thyroid IMPRESSION: 1. A small left thyroid lobe nodule is redemonstrated. 2. There is increased thyroid vascularity, which can be associated with thyroiditis. ACR TI-RADS RECOMMENDATION REFERENCE: Ultrasound-guided fine-needle aspiration, followup ultrasound, no further follow up. * TR1 (0 point) and TR 2 (2 points): No FNA or follow up * TR3 (3 points): FNA if more than or equal to 2.5 cm in maximum dimension, followup ultrasound in 1, 3 and 5 years if 1.5 to 2.4 cm in maximum dimension. * TR4 (4-6 points): FNA if more than or equal to 1.5 cm in maximum dimension, followup ultrasound in 1, 2, 3 and 5 years if 1 to 1.4 cm in maximum dimension. * TR5 (more than or equal to 7 points): FNA if more than or equal to 1 cm in maximum dimension, followup ultrasound every year for 5 years if 0.5 to 0.9 cm in maximum dimension. * TR3, TR4 or TR5 nodules that are below the size threshold for follow up receive no follow up.
== END 2021-09-21 08:15 | disposition home or self-care (01) ==
LOC: HO.HMGCX 08:14
PROVIDERS: PCP Internal Medicine; Visit Provider Internal Medicine
DX: N20.0 Calculus of kidney (principal); E04.1 Nontoxic single thyroid nodule; E05.00 Thyrotoxicosis with diffuse goiter without thyrotoxic crisis or storm
CPT/HCPCS: 76536; 76775

== ENCOUNTER → 2021-10-03 11:30 | Outpatient (BNVA) | payer MEDICARE, SELFPAY | PROVIDERS: PCP Internal Medicine; Visit Provider Internal Medicine | DX: E05.00 Thyrotoxicosis with diffuse goiter without thyrotoxic crisis or storm (principal); D70.2 Other drug-induced agranulocytosis; E04.1 Nontoxic single thyroid nodule | CPT/HCPCS: Q3014 ==

== ENCOUNTER 2022-03-29 06:03 | Outpatient (REF) | payer MEDICARE, SELFPAY ==
[2022-03-29 11:14] LABS: MANUAL DIFF FLAG NO
[2022-03-29 11:26] LABS: Basophils Percent Auto 0.4 % (0-2); Eosinophils Absolute Auto 0.2 X10*3/uL (0.0-0.4); Eosinophils Percent Auto 4.1 % (0-4); Hematocrit 42.5 % (37.0-47.0); Hemoglobin 14.1 g/dl (12.0-16.0); Imm Gran Abs Auto 0.02 X10*3/uL (0.00-0.03); Imm Gran Pct Auto 0.4 % (0.0-0.4); Lymphocytes Absolute Auto 1.6 X10*3/uL (1.2-4.9); Lymphocytes Percent Auto 30.3 % (20-40); Mean Corpuscular HGB Conc 33.2 g/dl (31.0-35.0); Mean Corpuscular Hemoglobin 31.8 pg (27.0-33.0); Mean Corpuscular Volume 95.9 fL (80.0-98.0); Mean Platelet Volume 9.3 fL (9.4-12.3); Monocytes Absolute Auto 0.5 X10*3/uL (0.1-1.2); Neutrophils Percent Auto 54.8 % (45-73); Platelet Count 252 X10*3/uL (160-400); Red Blood Count 4.43 X10*6/uL (4.20-5.50); Red Cell Distribution Width 13.1 % (11.0-16.0); White Blood Count 5.4 X10*3/uL (4.8-10.8)
[2022-03-29 11:47] LABS: Alanine Aminotransferase 11 U/L (0-31); Albumin Level 4.2 g/dL (3.5-5.0); Alkaline Phosphatase 68 U/L (39-117); Anion Gap 11 (12-20); Aspartate Amino Transferase 15 U/L (5-31); Bilirubin Total 0.6 mg/dL (0.0-1.0); Blood Urea Nitrogen 11 mg/dL (9-16); Calcium 9.4 mg/dL (8.4-10.2); Carbon Dioxide 29 mmol/L (22-29); Chloride 106 mmol/L (96-108); Cholesterol 246 mg/dL; Estimated Glomerular Filt Rate > 60; Glucose Fasting 84 mg/dL (60-99); HDL Cholesterol 73 mg/dL; LDL Cholesterol Calculated 157 mg/dl; Potassium 3.8 mmol/L (3.3-5.1); Sodium 142 mmol/L (135-145); Total Protein 6.5 g/dL (6.5-8.0); Triglycerides 81 mg/dL
[2022-03-29 12:09] LABS: Thyroid Stimulating Hormone 1.59 uIU/mL (0.32-4.0)
== END 2022-03-29 06:04 | disposition home or self-care (01) ==
LOC: HO.HMGCLDS 06:03
PROVIDERS: PCP Internal Medicine; Visit Provider Internal Medicine
DX: E03.9 Hypothyroidism, unspecified (principal); D64.9 Anemia, unspecified; N28.9 Disorder of kidney and ureter, unspecified; E78.5 Hyperlipidemia, unspecified
CPT/HCPCS: 36415; 80053; 80061; 84443; 85025

== ENCOUNTER 2022-07-02 07:11 | Outpatient (REF) | payer MEDICARE, SELFPAY ==
--- NOTE | ~2022-07-02 | MR_ITS ---
EXAMINATION: MR LUMBAR SPINE WITHOUT CONTRAST CLINICAL INFORMATION: Evaluate stenosis and right-sided nerve root impingement. COMPARISON: None TECHNIQUE: MRI of the lumbar spine was obtained using routine sequences without contrast. FINDINGS: The lumbar vertebral bodies maintain normal heights. There is mild dextroscoliotic curvature centered at the lower lumbar spine. There is significant disc height loss asymmetrically on the left at the L4-L5 and L5-S1 levels with endplate edema seen at both levels with edema extending into the bilateral L4 and L5 pedicles reflecting stress response. The distal spinal cord appears normal. The conus medullaris terminates normally at L1. The visualized paraspinal muscles and intra-abdominal and pelvic contents are within normal limits. SPINAL LEVELS: L1-L2: No posterior disc abnormality. No spinal canal or neural foraminal stenosis. L2-L3: Mild disc bulging. No spinal canal or neural foraminal stenosis. L3-L4: Disc bulging with ligamentum flavum infolding moderate facet arthropathy resulting in mild to moderate spinal canal stenosis with abutment of both traversing L4 nerve roots in the subarticular zones. Mild left and [id number] right neural foraminal stenosis. L4-L5: Disc bulging with moderate to severe facet arthropathy resulting in compression of both traversing L5 nerve roots in the subarticular zones. Mild spinal canal stenosis. Moderate left and mild right neural foraminal stenosis. L5-S1: Disc bulging with shallow central protrusion moderate facet arthropathy. Mild narrowing of the right subarticular zone. No spinal canal stenosis. Mild left neural foraminal stenosis. MR/MR lumbar spine wo con IMPRESSION: 1. At L3-L4 there is mild to moderate spinal canal stenosis with abutment of both traversing L4 nerve roots. 2. At L4-L5 there is compression of both traversing L5 nerve roots in the subarticular zones and moderate left and mild right neural foraminal stenosis. 3. At L5-S1 there is mild narrowing of the right subarticular zone and mild left neural foraminal stenosis. 4. Endplate edema seen at L4-L5 and L5-S1 with edema extending into the bilateral L4 and L5 pedicles reflecting stress response.
== END 2022-07-02 07:12 | disposition home or self-care (01) ==
LOC: HO.MRI 07:11
PROVIDERS: PCP Internal Medicine; Visit Provider Physical Medicine & Rehabilitation
DX: M48.07 Spinal stenosis, lumbosacral region (principal)
CPT/HCPCS: 72148

== ENCOUNTER 2022-09-05 06:10 | Outpatient (REF) | payer MEDICARE, SELFPAY | END 2022-09-05 06:11 | disposition home or self-care (01) | LOC: HO.HMGCLDS 06:10 | PROVIDERS: PCP Internal Medicine; Visit Provider Internal Medicine | DX: E03.9 Hypothyroidism, unspecified (principal) | CPT/HCPCS: 36415; 84443 ==

== ENCOUNTER 2023-02-28 08:07 | Outpatient (AMB) | payer MEDICARE, SELFPAY ==
--- NOTE | 2023-02-28 08:08 | MHC.OFFWIV ---
Intake Vital Signs 02/28/23 08:11 Height 5 ft 6 in Weight 123 lb 8 oz BMI 19.9 Pulse 90 Pulse Source Pulse Oximeter Pulse Oximetry (%) 94 Oxygen Delivery Method Room Air Intake Visit Reasons: EP ?Flu like symptoms (masked) Intake Note: Pt is here today for flu like symptoms started 3 days ago Patient Tobacco Use Status: Current everyday Tobacco user Allergies benzoin Allergy (Unknown, Verified 02/28/23 08:40) Rash fluoxetine [Prozac] Allergy (Unknown, Verified 02/28/23 08:40) Hives hydrocodone [From VICODIN] Adverse Reaction (Intermediate, Verified 02/28/23 08:40) AGITATION oxycodone [From Percocet] Adverse Reaction (Mild, Verified 02/28/23 08:40) AGITATION steri strips Allergy (Unknown, Uncoded 02/28/23 08:40) Unknown Medication List - Last Reconciled 02/28/23 by Aaron Kimble MD alprazolam 0.5 mg PO BEDTIME PRN benzonatate 200 mg PO BID-TID PRN citalopram 20 mg PO DAILY mastectomy bra (bra, mastectomy) As directed omeprazole 20 mg PO DAILY Do you need a note to return to daycare/school/sports/work: No HPI EP ?Flu like symptoms (masked) HPI Details Patient presents for a sick visit. Reporting symptoms of sinus congestion, sore throat and difficulty swallowing. Low-grade fever. No family member is sick. No recent travel. Patient reports symptoms of malaise and fatigue. PFSH Medical History Abdominal pain Breast cancer COVID-19 vaccine series completed Depression GERD (gastroesophageal reflux disease) Graves disease IBS (irritable bowel syndrome) Neutropenia Panic disorder PONV (postoperative nausea and vomiting) Smoker Thyroid nodule Vitamin D deficiency Surgical History History of bilateral mastectomy History of removal of right breast implant Hx of colonoscopy Hx of esophagogastroduodenoscopy S/P breast implant, left Family History Father Throat cancer Mother Lung cancer Maternal Grandmother Breast cancer Social History Housing: Condominium Are you a primary career services coordinator to a significant other at home: No Do you presently have visiting nurse or other home services: No Alcohol intake: never Patient Tobacco Use Status: Current everyday Tobacco user Tobacco use type: Cigarette Cigarette Packs Per Day: 1 Cigarettes Per Day: 20.0 Years Smoked: 45 e-Cigarette/Vaping Use: Never Used Second Hand Smoke Exposure: No service: No Current occupational status: employed Cognitive needs: No Hearing needs: No Vision needs: Yes Physical Exam Vital Signs: Last Vital Signs Pulse 90 02/28/23 08:11 Pulse Ox 94 02/28/23 08:11 Oxygen Delivery Method Room Air 02/28/23 08:11 BMI result Body Mass Index 19.9 Const General: cooperative and healthy appearing Nutritional Appearance: well nourished Orientation/consciousness: patient oriented x3 Limitations: no limitations HEENT Head: Yes normal to inspection Eyes General: appearance normal, both eyes and all related structures Neck Neck: Yes normal visual inspection Chest Chest palpation & inspection: normal palpation of entire chest wall Resp Effort & Inspection: normal respiratory effort Neuro General: patient oriented x3 Assessment & Plan Assessment & Plan (1) Upper respiratory tract infection: Code(s): J06.9 - Acute upper respiratory infection, unspecified Plan: Antibiotics ordered. Increase fluid intake. Tylenol for aches and pains. If symptoms worsen, follow-up here for a recheck. Coding Level of Care Code Est Pt Level 3 (21323) Diagnoses Upper respiratory tract infection J06.9
[2023-02-28 08:11] VITALS: PULSE 90; O2SAT 94; BMI 19.9
== END 2023-02-28 08:59 | disposition home or self-care (01) ==
PROVIDERS: PCP Internal Medicine; Visit Provider Internal Medicine
DX: J06.9 Acute upper respiratory infection, unspecified (principal)
CPT/HCPCS: 99213

== ENCOUNTER 2023-03-17 09:24 | Outpatient (AMB) | payer MEDICARE, SELFPAY ==
[2023-03-17 09:30] VITALS: BP 100/74; PULSE 78; O2SAT 95
--- NOTE | 2023-03-17 09:30 | MHC.PC.OV ---
Vital Signs 03/17/23 09:30 Height 5 ft 6 in Weight 124 lb BMI 20.0 BP 100/74 Blood Pressure Location Lt brachial Position Sitting Pulse 78 Pulse Source Pulse Oximeter Pulse Oximetry (%) 95 Oxygen Delivery Method Room Air Intake Visit Reasons: 6mth f/u Labs Strategy Consultant Required: No Oiler Helper: Not Required per policy Accompanied by: Self / Same As Patient Allergies benzoin Allergy (Unknown, Verified 03/17/23 09:31) Rash fluoxetine [Prozac] Allergy (Unknown, Verified 03/17/23 09:31) Hives hydrocodone [From VICODIN] Adverse Reaction (Intermediate, Verified 03/17/23 09:31) AGITATION oxycodone [From Percocet] Adverse Reaction (Mild, Verified 03/17/23 09:31) AGITATION steri strips Allergy (Unknown, Uncoded 03/17/23 09:31) Unknown Medication List - Last Reconciled 03/17/23 by Rico Tran MD alprazolam 0.5 mg PO BEDTIME PRN citalopram 20 mg PO DAILY mastectomy bra (bra, mastectomy) As directed omeprazole 20 mg PO DAILY prednisone 60 mg (3 x 20 mg) PO DAILY Tobacco use date assessed: 03/17/23 Fall risk assessment: No Falls in past year Last assessed Fall Risk: 03/17/23 Dental Screening Dental Screen Date: 03/17/23 Did you have a dental visit in the last 12 months?: Yes Did you have a dental problem in the last 6 months where you did not have access to dental care?: No Was dental information given to patient?: Patient has dentist HPI 6mth f/u Labs HPI Details GERD on Rx; doing well PFSH Medical History Abdominal pain Breast cancer COVID-19 vaccine series completed Depression GERD (gastroesophageal reflux disease) Graves disease IBS (irritable bowel syndrome) Neutropenia Panic disorder PONV (postoperative nausea and vomiting) Smoker Thyroid nodule Vitamin D deficiency Surgical History Hx of esophagogastroduodenoscopy Hx of colonoscopy S/P breast implant, left History of removal of right breast implant History of bilateral mastectomy Family History Father Throat cancer Mother Lung cancer Maternal Grandmother Breast cancer Social History Housing: Condominium Are you a primary early breastfeeding care specialist to a significant other at home: No Do you presently have visiting nurse or other home services: No Alcohol intake: never Patient Tobacco Use Status: Current everyday Tobacco user Tobacco use type: Cigarette Cigarette Packs Per Day: 1 Cigarettes Per Day: 20.0 Years Smoked: 45 e-Cigarette/Vaping Use: Never Used Second Hand Smoke Exposure: No service: No Current occupational status: employed Cognitive needs: No Hearing needs: No Vision needs: Yes Questionnaire PHQ-9 Over the last 2 weeks, how often have you been bothered by any of the following problems? 1. Little interest or pleasure in doing things: not at all 2. Feeling down, depressed, or hopeless: not at all 3. Trouble falling or staying asleep, or sleeping too much: not at all 4. Feeling tired or having little energy: not at all 5. Poor appetite or overeating: not at all 6. Feeling bad about yourself - or that you are a failure or have let yourself or your family down: not at all 7. Trouble concentrating on things, such as reading the newspaper or watching television: not at all 8. Moving or speaking so slowly that other people could have noticed. Or the opposite - being so fidgety or restless that you have been moving around a lot more than usual: not at all 9. Thoughts that you would be better off or of hurting yourself in some way: not at all Total score: 0 Depression Screening Interpretation: Negative Depression Screening Done: Yes 33599 - PHQ-9 Billing: Yes Source: Developed by Drs. Chad Perkins, Michell Carrillo, Teodoro Stafford and colleagues, with an educational alexandra from [employer]. Thrive Questionnaire Date Thrive assessed: 03/17/23 I am a: Patient What is your living situation today?: I have a steady place to live Within the past 12 months, did the food you bought not last and you didn't have the money to get more?: Never true Within the past 12 months, did you worry whether your food would run out before you got money to buy more?: Never true Do you have trouble paying for medicines?: No Do you have trouble getting transportation to medical appointments?: No Do you have trouble paying your heating and electricity bill?: No Do you have trouble taking care of your child, family member or friend?: No Do you have trouble with day-to-day activities such as bathing, preparing meals, shopping, managing finances, etc.?: No Are you currently unemployed and looking for a job?: No Are you interested in more education?: No Please select the resources that you would like help with: None AUDIT C Alcohol Use Questionnaire (AUDIT-C) 1. How often do you have a drink containing alcohol?: Never Total Score: 0 Score Reviewed/Action Taken: Yes IRMA-7 AMB Questionnaire IRMA-7 Date IRMA - 7 assessed: 03/17/23 Feeling nervous, anxious, or on edge: 0 = Not at all Not being able to stop or control worryin = Not at all Worrying too much about different things: 0 = Not at all Trouble relaxin = Not at all Being so restless that it is hard to sit still: 0 = Not at all Becoming easily annoyed or irritable: 0 = Not at all Feeling afraid as if something awful might happen: 0 = Not at all Total IRMA-7 score (0-4 normal; 5-9 mild; 10-14 moderate; 15-21 severe): 0 Source: Developed by Drs. Chad Perkins, Michell Carrillo, Teodoro Stafford and colleagues, with an educational alexandra from [employer]. IRMA-7 Assessment Billing IRMA-7 Assessment Tool: IRMA-7 Assessment 19364 Review of Systems Const Denies chills, Denies fatigue, Denies headache(s) and Denies weight loss Eyes Denies change in vision, Denies diplopia and Denies eye pain ENT Denies vertigo, Denies dizziness, Denies headache(s) and Denies nasal discharge Card Denies chest pain, Denies rapid heart rate and Denies dyspnea on exertion Resp Denies chest congestion, Denies cough, Denies pain with cough and Denies dyspnea on exertion GI Denies abdominal pain, Denies hematochezia and Denies change in bowel habits Musc Denies myalgias, Denies arthralgias and Denies joint swelling Skin/Breast Denies lesions and Denies unusual bruising Neuro Denies vertigo, Denies dizziness, Denies headache(s) and Denies focal weakness Endo Denies fatigue Physical exam (Primary Care) Vital Signs: Last Vital Signs Pulse 78 03/17/23 09:30 BP 100/74 03/17/23 09:30 Pulse Ox 95 03/17/23 09:30 Oxygen Delivery Method Room Air 03/17/23 09:30 BMI result Body Mass Index 20.0 Tobacco/Smoking Status: Tobacco use Status Tobacco use date assessed 03/17/23 03/17/23 09:36 Patient Tobacco Use Status Current everyday Tobacco 03/17/23 09:36 Tobacco use type Cigarette 03/17/23 09:36 e-Cigarette/Vaping Use Never Used 03/17/23 09:36 PHQ-9: PHQ-9 Score PHQ-9: Total score 0 03/17/23 09:45 Depression Screening Interpretation: Negative Thrive Assessment: Date of Thrive Assessment Date Thrive assessed 03/17/23 03/17/23 09:36 Const General: cooperative, healthy appearing and no acute distress Orientation/consciousness: oriented to person, oriented to place and oriented to time HENMT Head: Yes normal to inspection, Yes normocephalic and Yes atraumatic Mouth: Normal oral and palatal mucosa present and tongue normal Throat: Yes posterior oropharynx normal and Yes uvula midline Eyes General: appearance normal, both eyes and all related structures Neck Neck: Yes normal visual inspection, Yes full ROM and Yes no lymphadenopathy Thyroid: Thyroid normal Carotids: normal carotid upstroke Chest Chest palpation & inspection: normal inspection of the chest Resp Effort & Inspection: normal respiratory effort and able to speak in complete sentences Auscultation: clear to auscultation bilaterally Cardio Jugular venous distension: no JVD Palpation: normal PMI Rate: regular rate Rhythm: regular rhythm Heart sounds: S1 normal heart sound present and S2 normal heart sound present GI Inspection: Yes normal to inspection Palpation (GI): Soft to palpation and No hepatosplenomegaly present Auscultation: normal bowel sounds General: Yes no CVA tenderness Back/Spine/Pelvis Back: no CVA tenderness Skin General skin exam: no rashes or lesions noted Neuro General: oriented to person, oriented to place and oriented to time Extrem General: Yes normal to inspection and Yes full ROM Assessment and Plan Assessment & Plan (1) Chronic GERD: Code(s): K21.9 - Gastro-esophageal reflux disease without esophagitis Plan: stable; same rx Orders: Orders Lipid Panel Today E78.5 - Hyperlipidemia, unspecified Thyroid Stimulating Hormone Today E03.9 - Hypothyroidism, unspecified Complete Blood Count Auto Diff Today D64.9 - Anemia, unspecified Comprehensive [place]. Panel Fast Today N28.9 - Disorder of kidney and ureter, unspecified Coding Level of Care Code Est Pt Level 3 (97882) Diagnoses Chronic GERD K21.9 Additional Codes IRMA-7 Assessment Billing - IRMA-7 Assessment Tool: IRMA-7 Assessment 95253 ([id number])
== END 2023-03-17 09:47 | disposition home or self-care (01) ==
PROVIDERS: PCP Internal Medicine; Visit Provider Internal Medicine
DX: K21.9 Gastro-esophageal reflux disease without esophagitis (principal)
CPT/HCPCS: 99213

== ENCOUNTER 2023-03-28 06:04 | Outpatient (REF) | payer MEDICARE, SELFPAY ==
[2023-03-28 11:34] LABS: MANUAL DIFF FLAG NO
[2023-03-28 11:59] LABS: Basophils Percent Auto 0.6 % (0-2); Eosinophils Absolute Auto 0.3 X10*3/uL (0.0-0.4); Eosinophils Percent Auto 5.4 % (0-4); Hematocrit 41.8 % (37.0-47.0); Hemoglobin 13.6 g/dl (12.0-16.0); Imm Gran Abs Auto 0.01 X10*3/uL (0.00-0.03); Imm Gran Pct Auto 0.2 % (0.0-0.4); Lymphocytes Absolute Auto 1.8 X10*3/uL (1.2-4.9); Lymphocytes Percent Auto 33.5 % (20-40); Mean Corpuscular HGB Conc 32.5 g/dl (31.0-35.0); Mean Corpuscular Hemoglobin 31.6 pg (27.0-33.0); Mean Platelet Volume 9.4 fL (9.4-12.3); Monocytes Absolute Auto 0.5 X10*3/uL (0.1-1.2); Monocytes Percent Auto 9.8 % (2-11); Neutrophils Absolute Auto 2.7 x10*3/uL (2.0-8.3); Neutrophils Percent Auto 50.5 % (45-73); Platelet Count 261 X10*3/uL (160-400); Red Blood Count 4.31 X10*6/uL (4.20-5.50); Red Cell Distribution Width 13.2 % (11.0-16.0); White Blood Count 5.2 X10*3/uL (4.8-10.8)
[2023-03-28 12:31] LABS: Alanine Aminotransferase 11 U/L (0-31); Albumin Level 3.9 g/dL (3.5-5.0); Alkaline Phosphatase 67 U/L (39-117); Anion Gap 13 (12-20); Aspartate Amino Transferase 16 U/L (5-31); Bilirubin Total 0.3 mg/dL (0.0-1.0); Blood Urea Nitrogen 11 mg/dL (9-16); Calcium 9.3 mg/dL (8.4-10.2); Carbon Dioxide 29 mmol/L (22-29); Chloride 106 mmol/L (96-108); Cholesterol 225 mg/dL (<200); Estimated Glomerular Filt Rate > 60; Glucose Fasting 86 mg/dL (60-99); HDL Cholesterol 68 mg/dL (>40); LDL Cholesterol Calculated 139 mg/dL (<100); Potassium 4.1 mmol/L (3.3-5.1); Sodium 144 mmol/L (135-145); Total Protein 6.8 g/dL (6.5-8.0); Triglycerides 91 mg/dL (<150)
[2023-03-28 12:34] LABS: Thyroid Stimulating Hormone 1.81 uIU/mL (0.32-4.0)
== END 2023-03-28 06:05 | disposition home or self-care (01) ==
LOC: HO.HMGCLDS 06:04
PROVIDERS: PCP Internal Medicine; Visit Provider Internal Medicine
DX: E78.5 Hyperlipidemia, unspecified (principal); E03.9 Hypothyroidism, unspecified; D64.9 Anemia, unspecified; N28.9 Disorder of kidney and ureter, unspecified
CPT/HCPCS: 36415; 80053; 80061; 84443; 85025

== ENCOUNTER 2023-04-25 09:52 | Outpatient (AMB) | payer MEDICARE, SELFPAY ==
--- NOTE | 2023-04-25 10:13 | MHC.OFFWIV ---
Intake Vital Signs 04/25/23 10:18 Height 5 ft 6 in Weight 124 lb BMI 20.0 BP 102/70 Blood Pressure Location Rt brachial Position Sitting Pulse 69 Pulse Source Pulse Oximeter Temp 98.1 F Temp Source Oral Pulse Oximetry (%) 96 Oxygen Delivery Method Room Air Intake Visit Reasons: EP Sore throat Intake Note: pt is here for co heartburn causing a sore throat Patient Tobacco Use Status: Current everyday Tobacco user Accompanied by: Self / Same As Patient Allergies benzoin Allergy (Unknown, Verified 04/25/23 10:18) Rash fluoxetine [Prozac] Allergy (Unknown, Verified 04/25/23 10:18) Hives hydrocodone [From VICODIN] Adverse Reaction (Intermediate, Verified 04/25/23 10:18) AGITATION oxycodone [From Percocet] Adverse Reaction (Mild, Verified 04/25/23 10:18) AGITATION steri strips Allergy (Unknown, Uncoded 03/17/23 09:31) Unknown Do you need a note to return to daycare/school/sports/work: No HPI EP Sore throat HPI Details Patient is a 68-year-old female with a history of GERD comes the walk-in clinic complaining of sore throat for about a week now. She denies any associated nasal or chest congestion, cough, shortness of breath, nausea vomiting or diarrhea, fatigue, myalgias or malaise, heartburn, sour taste in her mouth, chest discomfort or pain, shortness of breath, weakness or dizziness or other significant associated symptoms. She gives a history of having a sore throat associated with acid reflux and questions if this might be the cause. She does report that she had is a heavy coffee drinker, and does not drink much water. She also reports using apple cider vinegar lozenges. She states that her acid reflux has been controlled for some time with Protonix, and then she was switched to omeprazole as a PPI. She reports no other changes to her medications or lifestyle. [facility] Medical History COVID-19 vaccine series completed PONV (postoperative nausea and vomiting) Smoker Breast cancer GERD (gastroesophageal reflux disease) IBS (irritable bowel syndrome) Vitamin D deficiency Panic disorder Neutropenia Thyroid nodule Graves disease Abdominal pain Depression Surgical History Hx of esophagogastroduodenoscopy Hx of colonoscopy S/P breast implant, left History of removal of right breast implant History of bilateral mastectomy Family History Father Throat cancer Mother Lung cancer Maternal Grandmother Breast cancer Social History [facility] Are you a primary after school caregiver to a significant other at home: No Do you presently have visiting nurse or other home services: No Alcohol intake: never Patient Tobacco Use Status: Current everyday Tobacco user Tobacco use type: Cigarette Cigarette Packs Per Day: 1 Cigarettes Per Day: 20.0 Years Smoked: 45 e-Cigarette/Vaping Use: Never Used Second Hand Smoke Exposure: No service: No Current occupational status: employed Cognitive needs: No Hearing needs: No Vision needs: Yes Review of Systems Const All systems reviewed & are unremarkable except as noted in HPI and below Physical Exam Vital Signs: Last Vital Signs Temp 98.1 F 04/25/23 10:18 Pulse 69 04/25/23 10:18 BP 102/70 04/25/23 10:18 Pulse Ox 96 04/25/23 10:18 Oxygen Delivery Method Room Air 04/25/23 10:18 BMI result Body Mass Index 20.0 Const General: cooperative, healthy appearing, comfortable, no acute distress, alert, awake, Physically active and well groomed; No anxious, diaphoretic, ill appearing, intoxicated appearing, poor hygiene or tired appearing Nutritional Appearance: average body habitus Limitations: no limitations HEENT Head: Yes normal to inspection, Yes normocephalic and Yes atraumatic General nose exam: Normal nares present Face and sinus: Yes normal facial exam, Yes sinuses nontender and Yes face symmetric Mouth: Normal oral and palatal mucosa present, lip normal and tongue normal Throat: Yes posterior oropharynx normal, No peritonsillar mass, No postnasal drainage, No uvular edema and No cobblestoning Eyes General: appearance normal, both eyes and all related structures Neck Neck: Yes normal visual inspection, Yes full ROM, Yes no lymphadenopathy, Yes trachea midline, Yes supple and No anterior neck swelling Resp Effort & Inspection: normal respiratory effort Skin Other: Good color, warm and dry Psych Appearance: grossly normal Mental Status: mental status grossly normal Speech and movement: Normal speech and movement present Affect: normal affect Attitude: cooperative Thought process: Normal thought process present Insight: Good insight present (Psych) Judgement: Good judgement present (Psych) Results AMB Rapid Strep AMB Rapid Strep Negative Last Edit by Ad Sheffield CMA on 04/25/23 10:47 Results Reviewed Results Reviewed: Laboratory Last Values Strep Scn Rapid Clinic Negative 04/25/23 10:46 Negative strep test Assessment & Plan Assessment & Plan (1) Pharyngitis: Code(s): J02.9 - Acute pharyngitis, unspecified Qualifiers: Pharyngitis/tonsillitis etiology: unspecified etiology Qualified Code(s): J02.9 - Acute pharyngitis, unspecified Plan: Patient is a 68-year-old female with complaint of 1 week of pharyngitis, with no associated respiratory or viral symptoms. She declined viral testing in the office today. She does have a history of this in the past being due to acid reflux, and due to her nonadherence to dietary modifications to reduce acid intake, this might be the cause of her symptom. She reports heavy caffeine intake as well as vinegar. We discussed decreasing anything that might exacerbate her symptoms, and starting on famotidine in addition to her PPI, as needed. She can reduce frequency over the next week or 2 if symptoms are improving. She has a GI specialist that she contact if symptoms persist or worsen, or she can return to the walk-in as needed. She knows to go to the emergency department for worrisome symptoms Orders: Orders AMB Rapid Strep Screen 04/25/23 Z13.9 - Encounter for screening, unspecified Medications: New famotidine 10 mg PO BID PRN 30 tabs 0RF heartburn Coding Level of Care Code Est Pt Level 4 (72799) Diagnoses Pharyngitis, unspecified etiology J02.9 Pharyngitis/tonsillitis etiology: unspecified etiology
[2023-04-25 10:18] VITALS: BP 102/70; PULSE 69; TEMP 36.7; O2SAT 96
== END 2023-04-25 13:23 | disposition home or self-care (01) ==
PROVIDERS: PCP Internal Medicine; Visit Provider Physician Assistant Medical
DX: J02.9 Acute pharyngitis, unspecified (principal)
CPT/HCPCS: 87880; 99214

== ENCOUNTER 2023-09-09 09:09 | Outpatient (AMB) | payer MEDICARE, SELFPAY ==
[2023-09-09 09:20] VITALS: BP 110/60; PULSE 70; O2SAT 98; BMI 19.9
--- NOTE | 2023-09-09 09:20 | A.OFFPC_ITS ---
Vital Signs 09/09/23 09:20 Height 5 ft 6 in Weight 123 lb BMI 19.9 BP 110/60 Blood Pressure Location Lt brachial Position Sitting Pulse 70 Pulse Source Pulse Oximeter Pulse Oximetry (%) 98 Oxygen Delivery Method Room Air Intake Visit Reasons: 6 month f/u w. 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 [employer] Workers: Not Required per policy Accompanied by: Self / Same As Patient Allergies benzoin Allergy (Unknown, Verified 09/09/23 09:20) Rash fluoxetine [Prozac] Allergy (Unknown, Verified 09/09/23 09:20) Hives hydrocodone [From VICODIN] Adverse Reaction (Intermediate, Verified 09/09/23 09:20) AGITATION oxycodone [From Percocet] Adverse Reaction (Mild, Verified 09/09/23 09:20) AGITATION steri strips Allergy (Unknown, Uncoded 09/09/23 09:20) Unknown Medication List - Last Reconciled 09/09/23 by Rioc Tran MD alprazolam 0.5 mg PO BEDTIME PRN citalopram 20 mg PO DAILY famotidine 10 mg PO BID PRN mastectomy bra (bra, mastectomy) As directed omeprazole 20 mg PO DAILY Tobacco use date assessed: 03/17/23 Fall risk assessment: No Falls in past year Last assessed Fall Risk: 09/09/23 Dental Screening Dental Screen Date: 03/17/23 HPI 6 month f/u w. labs HPI Details has a thyroid nodule on US and due for recheck; [facility] Medical History COVID-19 vaccine series completed PONV (postoperative nausea and vomiting) Smoker Breast cancer GERD (gastroesophageal reflux disease) IBS (irritable bowel syndrome) Vitamin D deficiency Panic disorder Neutropenia Thyroid nodule Graves disease Abdominal pain Depression Surgical History Hx of esophagogastroduodenoscopy Hx of colonoscopy S/P breast implant, left History of removal of right breast implant History of bilateral mastectomy Family History Father Throat cancer Mother Lung cancer Maternal Grandmother Breast cancer Social History Housing: Condominium Are you a primary inspector health care facilities to a significant other at home: No Do you presently have visiting nurse or other home services: No Alcohol intake: never Patient Tobacco Use Status: Current everyday Tobacco user Tobacco use type: Cigarette Cigarette Packs Per Day: 1 Cigarettes Per Day: 20.0 Years Smoked: 45 e-Cigarette/Vaping Use: Never Used Second Hand Smoke Exposure: No service: No Current occupational status: employed Cognitive needs: No Hearing needs: No Vision needs: Yes Questionnaire Thrive Questionnaire Date Thrive assessed: 03/17/23 IRMA-7 AMB Questionnaire IRMA-7 Date IRMA - 7 assessed: 03/17/23 Source: Developed by Drs. Chad Perkins, Michell Carrillo, Teodoro Stafford and colleagues, with an educational alexandra from [employer]. Review of Systems Const Denies chills, Denies headache(s) and Denies weight loss ENT Denies headache(s) Card Denies chest pain, Denies syncope, Denies irregular heart rhythm and Denies dyspnea Resp Denies chest congestion, Denies cough and Denies dyspnea Musc Denies deformity and Denies joint swelling Neuro Denies syncope and Denies headache(s) Physical exam (Primary Care) Vital Signs: Last Vital Signs Pulse 70 09/09/23 09:20 BP 110/60 09/09/23 09:20 Pulse Ox 98 09/09/23 09:20 Oxygen Delivery Method Room Air 09/09/23 09:20 BMI result Body Mass Index 19.9 Tobacco/Smoking Status: Tobacco use Status Tobacco use date assessed 03/17/23 09/09/23 09:21 Patient Tobacco Use Status Current everyday Tobacco 09/09/23 09:21 Tobacco use type Cigarette 09/09/23 09:21 e-Cigarette/Vaping Use Never Used 09/09/23 09:21 Thrive Assessment: Date of Thrive Assessment Date Thrive assessed 03/17/23 09/09/23 09:21 Const General: cooperative, comfortable, no acute distress and alert Neck Neck: Yes no lymphadenopathy Thyroid: Thyroid normal Resp Effort & Inspection: normal respiratory effort Auscultation: clear to auscultation bilaterally Percussion: percussion normal Cardio Jugular venous distension: no JVD Palpation: normal PMI Rate: regular rate Rhythm: regular rhythm Heart sounds: S1 normal heart sound present and S2 normal heart sound present GI Inspection: Yes normal to inspection Palpation (GI): No hepatosplenomegaly present Skin General skin exam: no rashes or lesions noted Extrem General: Yes no clubbing, cyanosis or edema Assessment and Plan Assessment & Plan (1) Thyroid nodule: Code(s): E04.1 - Nontoxic single thyroid nodule Plan: labs and us Orders: Orders Lipid Panel Today Z13.220 - Encounter for screening for lipoid disorders Thyroid Stimulating Hormone Today Z13.29 - Encounter for screening for other suspected endocrine disorder Complete Blood Count Auto Diff Today Z13.0 - Encounter for screening for diseases of the blood and blood-forming organs and certain disorders involving the immune mechanism Comprehensive [place]. Panel Fast Today Z13.9 - Encounter for screening, unspecified US thyroid Today E04.1 - Nontoxic single thyroid nodule Coding Level of Care Code Est Pt Level 3 (62332) Diagnoses Thyroid nodule E04.1
== END 2023-09-09 09:38 | disposition home or self-care (01) ==
PROVIDERS: PCP Internal Medicine; Visit Provider Internal Medicine
DX: E04.1 Nontoxic single thyroid nodule (principal)
CPT/HCPCS: 99213

== ENCOUNTER 2023-09-10 06:07 | Outpatient (REF) | payer MEDICARE, SELFPAY ==
[2023-09-10 10:03] LABS: MANUAL DIFF FLAG NO
[2023-09-10 10:17] LABS: Basophils Percent Auto 0.5 % (0-2); Eosinophils Absolute Auto 0.3 X10*3/uL (0.0-0.4); Eosinophils Percent Auto 4.3 % (0-4); Hematocrit 41.7 % (37.0-47.0); Hemoglobin 13.7 g/dl (12.0-16.0); Imm Gran Abs Auto 0.01 X10*3/uL (0.00-0.03); Imm Gran Pct Auto 0.2 % (0.0-0.4); Lymphocytes Absolute Auto 1.6 X10*3/uL (1.2-4.9); Lymphocytes Percent Auto 26.6 % (20-40); Mean Corpuscular HGB Conc 32.9 g/dl (31.0-35.0); Mean Corpuscular Hemoglobin 32.2 pg (27.0-33.0); Mean Corpuscular Volume 98.1 fL (80.0-98.0); Mean Platelet Volume 9.4 fL (9.4-12.3); Monocytes Absolute Auto 0.6 X10*3/uL (0.1-1.2); Monocytes Percent Auto 9.7 % (2-11); Neutrophils Absolute Auto 3.6 x10*3/uL (2.0-8.3); Neutrophils Percent Auto 58.7 % (45-73); Platelet Count 245 X10*3/uL (160-400); Red Blood Count 4.25 X10*6/uL (4.20-5.50); Red Cell Distribution Width 13.1 % (11.0-16.0); White Blood Count 6.1 X10*3/uL (4.8-10.8)
[2023-09-10 10:47] LABS: Alanine Aminotransferase 12 U/L (0-31); Albumin Level 4.2 g/dL (3.5-5.0); Alkaline Phosphatase 60 U/L (39-117); Anion Gap 11 (12-20); Aspartate Amino Transferase 17 U/L (5-31); Bilirubin Total 0.5 mg/dL (0.0-1.0); Blood Urea Nitrogen 11 mg/dL (9-16); Calcium 9.6 mg/dL (8.4-10.2); Carbon Dioxide 29 mmol/L (22-29); Chloride 106 mmol/L (96-108); Cholesterol 226 mg/dL (<200); Estimated Glomerular Filt Rate > 60; Glucose Fasting 91 mg/dL (60-99); HDL Cholesterol 71 mg/dL (>40); LDL Cholesterol Calculated 137 mg/dL (<100); Potassium 4.4 mmol/L (3.3-5.1); Sodium 142 mmol/L (135-145); Thyroid Stimulating Hormone 2.62 uIU/mL (0.32-4.0); Total Protein 6.8 g/dL (6.5-8.0); Triglycerides 92 mg/dL (<150)
== END 2023-09-10 06:08 | disposition home or self-care (01) ==
LOC: HO.HMGCLDS 06:07
PROVIDERS: PCP Internal Medicine; Visit Provider Internal Medicine
DX: Z13.0 Encounter for screening for diseases of the blood and blood-forming organs and certain disorders involving the immune mechanism (principal); Z13.220 Encounter for screening for lipoid disorders; Z13.29 Encounter for screening for other suspected endocrine disorder; Z13.9 Encounter for screening, unspecified
CPT/HCPCS: 36415; 80053; 80061; 84443; 85025

== ENCOUNTER 2023-09-17 08:35 | Outpatient (REF) | payer MEDICARE, SELFPAY ==
--- NOTE | ~2023-09-17 | US_ITS ---
EXAMINATION: US THYROID CLINICAL INFORMATION: Nontoxic single thyroid nodule. COMPARISON: Ultrasound soft tissue head/neck thyroid dated 09/21/2021 and 08/01/2020. TECHNIQUE: Linear transducer grayscale and color Doppler examination with attention to the region of the thyroid. FINDINGS: SIZE: Measurements of the thyroid lobes and nodules are given in sagittal, anteroposterior and transverse dimensions respectively. Right Thyroid Lobe: 4.0 x 1.0 x 1.0 cm, volume 2.1 mL. Previously 4.2 x 1.1 x 1.0 cm, volume 2.4 mL. Parenchyma: The gland echotexture is heterogeneous. Thyroid vascularity is increased. Left Thyroid Lobe: 4.7 x 1.2 x 1.4 cm, volume 4.1 mL. Previously 5.0 x 1.4 x 2.0 cm, volume 7.1 mL. Parenchyma: The gland echotexture is heterogeneous. Thyroid vascularity is increased. Isthmus: 0.2 cm in maximum AP dimension. Previously 0.3 cm. Estimated total number of nodules greater than or equal to 1 cm: 0. Woodworking Machine Feeder nodules are described as follows: 1. Location: Left inferior. Size: 0.9 x 0.7 x 0.5 cm, volume 0.2 mL. Previously: 0.8 x 0.5 x 0.7 cm, volume 0.1 mL. Nodule characteristics: Composition: Solid/almost completely solid (2). Echogenicity: Very hypoechoic (3). Shape: Not taller than wide (0). Margins: Smooth (0). Echogenic Foci: None (0). ACR TI-RADS total points: 5 ACR TI-RADS category: 4 Significant change in size (>/= 20% in 2 dimensions and minimal increase of 2 mm or 50% or greater increase in volume): Yes Change in features: Not with accounting for differences in interobserver variability, as imaging findings appear similar to prior. Change in ACR TI-RADS risk category: Not with accounting for differences in interobserver variability, as imaging findings appear similar to prior. NODES: No lymphadenopathy is seen in the tissue surrounding the thyroid gland. US/US thyroid IMPRESSION: A 0.9 cm to 4 left thyroid nodules increased in size from prior, though given size less than 1 cm does not meet TI-RADS criteria for follow-up. Heterogeneous hypervascular thyroid which can be seen in the setting of thyroiditis.. ACR TI-RADS RECOMMENDATION REFERENCE: Ultrasound-guided fine-needle aspiration, follow up ultrasound, no further followup. * TR1 (0 point) and TR2 (2 points): No FNA or followup * TR3 (3 points): FNA if more than or equal to 2.5 cm in maximum dimension, follow up ultrasound in 1, 3 and 5 years if 1.5 to 2.4 cm in maximum dimension. * TR4 (4-6 points): FNA if more than or equal to 1.5 cm in maximum dimension, follow up ultrasound in 1, 2, 3 and 5 years if 1 to 1.4 cm in maximum dimension. * TR5 (more than or equal to 7 points): FNA if more than or equal to 1 cm in maximum dimension, follow up ultrasound every year for 5 years if 0.5 to 0.9 cm in maximum dimension. * TR3, TR4 or TR5 nodules that are below the size threshold for follow up receive no followup.
== END 2023-09-17 08:36 | disposition home or self-care (01) ==
LOC: HO.US 08:35
PROVIDERS: PCP Internal Medicine; Visit Provider Internal Medicine
DX: E04.1 Nontoxic single thyroid nodule (principal)
CPT/HCPCS: 76536

== ENCOUNTER 2023-10-16 07:40 | Outpatient (AMB) | payer MEDICARE, SELFPAY ==
--- NOTE | 2023-10-16 07:47 | MHC.OFFVIS ---
Vital Signs 10/16/23 07:49 Height 5 ft 6 in Weight 122 lb 12.76 oz BMI 19.8 BP 106/60 Blood Pressure Location Rt brachial Position Sitting Pulse 67 Pulse Source Pulse Oximeter Intake Visit Reasons: Nontoxic multinodular goiter-confirmed Intake Note: Patient presents today for Nontoxic Multinodular goiter follow up, last seen by Dr. Sandoval on 10/02/2021. Glass Cut Off Tender Required: No Accompanied by: Self / Same As Patient Allergies benzoin Allergy (Unknown, Verified 10/16/23 07:50) Rash fluoxetine [Prozac] Allergy (Unknown, Verified 10/16/23 07:50) Hives hydrocodone [From VICODIN] Adverse Reaction (Intermediate, Verified 10/16/23 07:50) AGITATION oxycodone [From Percocet] Adverse Reaction (Mild, Verified 10/16/23 07:50) AGITATION steri strips Allergy (Unknown, Uncoded 10/16/23 07:50) Unknown Medication List - Last Reconciled 10/16/23 by Chad Mohamud MD alprazolam 0.5 mg PO BEDTIME PRN citalopram 20 mg PO DAILY famotidine 10 mg PO BID PRN mastectomy bra (bra, mastectomy) As directed omeprazole 20 mg PO DAILY HPI Comments Details: 68 YO F with PMHx Grave's disease who is seen in F/U for Grave's disease with Thyrotoxicosis, and a thyroid nodule. Patient last saw Dr. Sandoval 10/03/2021 She was previously followed by Dr. Chad Mohamud. She was last seen by him 07/13/18. She was initially diagnosed with Grave's disease in 2011 and has been on and off Methimazole since that time. She has been tapered off the Methimazole many times in the past, and always had recurence shortly thereafter. She has not been able to remain off the Methimazole for >[address] Mohamud did have many discussions with her regarding definitive treatment options of total thyroidectomy of I131 ablation. She has adamantly refused these options. Continued therapy with Methimazole was not recommended as she did have a history of Neutropenia which developed while on Methimazole, and resolved after stopping. She did have labs repeated after her initial visit with mi and was found to be TSI positive. Methimazole was stopped at that time, and hyperthyroidism did recur. She subsequently underwent thyroid uptake and scan 10/29/18 with uptake high normal at 28%. This was diffusely increased in the L lobe of the thyroid when compared to the R, and there was heterogenous uptake within the R lobe. She also had a thyroid US which revealed a L mid pole 0.7 cm nodule. 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 We also discussed an increased risk of thyroid cancer in her thyroid nodule due to Grave's disease. I did refer her to Dr. Wilder to discuss thyroidectomy, which he also recommended. She refuses. She opted to resume Methimazole with repeat of CBC. She was started back on Methimazole 5 mg PO daily as of 11/30/18. Labs were repeated early Apr 2019 with WBC slightly below the lower limit of normal, and ANC at the lower limit of normal. Her Methimazole was again stopped at that time. She has remained off Methimazole since that time and fortunately her TSH has remained WNL. She currently denies any symptoms of hyperthyroidism. US Thyroid: 09/21/2021 Right Thyroid Lobe: 4.18 x 1.11 x 0.99 cm, volume 2.4 mL. Previously 3.9 x 1.2 x 1.2 cm, volume 2.9 mL. Parenchyma: The gland echotexture is homogeneous. Thyroid vascularity is increased. Left Thyroid Lobe: 5.04 x 1.37 x 1.97 cm, volume 7.09 mL. Previously 5.1 x 1.5 x 1.9 cm, volume 7.6 mL. Parenchyma: The gland echotexture is homogeneous. Thyroid vascularity is increased. Isthmus: 0.32 cm in maximum AP dimension. Previously 0.30 cm. Estimated total number of nodules greater than or equal to 1 cm: 0. [employer] Portal Architect nodules are described as follows: 1.? Location: Left mid/inferior. ?? ? Size: 0.8 x 0.5 x 0.7 cm, volume 0.13 mL. ?? ? Previously: 0.8 x 0.4 x 0.6 cm, volume 0.1 mL. ?? ? Nodule characteristics: ?? ? Composition: Mixed cystic and solid (1). ?? ? Echogenicity: Hypoechoic (2). ?? ? Shape: Not taller than wide (0). ?? ? Margins: Smooth (0). ?? ? Echogenic Foci: None (0).? ACR TI-RADS total points: 3 Previous: 3 ?? ? ACR TI-RADS category: 3 Previous: 3 ? Significant change in size (>/= 20% in 2 dimensions and minimal increase of 2 mm or 50% or greater increase in volume): No ?? ? Change in features: No ?? ? Change in ACR TI-RADS risk category: No NODES: No lymphadenopathy is seen in the tissue surrounding the thyroid gland. Labs: Laboratory Tests 09/17/21 09/17/21 06:55 06:55 TSH 1.19 Free T4 0.92 Total T3 105 PFSH Medical History COVID-19 vaccine series completed PONV (postoperative nausea and vomiting) Smoker Breast cancer GERD (gastroesophageal reflux disease) IBS (irritable bowel syndrome) Vitamin D deficiency Panic disorder Neutropenia Thyroid nodule Graves disease Abdominal pain Depression Surgical History Hx of esophagogastroduodenoscopy Hx of colonoscopy S/P breast implant, left History of removal of right breast implant History of bilateral mastectomy Family History Father Throat cancer Mother Lung cancer Maternal Grandmother Breast cancer Social History Housing: Condominium Are you a primary childcare center director to a significant other at home: No Do you presently have visiting nurse or other home services: No Alcohol intake: never Patient Tobacco Use Status: Current everyday Tobacco user Tobacco use type: Cigarette Cigarette Packs Per Day: 1 Cigarettes Per Day: 20.0 Years Smoked: 45 e-Cigarette/Vaping Use: Never Used Second Hand Smoke Exposure: No service: No Current occupational status: employed Cognitive needs: No Hearing needs: No Vision needs: Yes Physical Exam Vital Signs: Last Vital Signs Pulse 67 10/16/23 07:49 BP 106/60 10/16/23 07:49 BMI result Body Mass Index 19.8 Const Other: Thyroid is enlarged in size weighs about 20 g. There no palpable thyroid nodules Assessment & Plan Assessment & Plan (1) Multiple thyroid nodules: Code(s): E04.2 - Nontoxic multinodular goiter Category: Medical Plan: This 68-year-old white female with a history of Graves disease currently remission with a subcentimeter thyroid nodule. She appears to be clinically and biochemically euthyroid. Plan is for continued observation. At This point, patient returned to the care of her primary care provider who can check thyroid function studies every 6 months to 1 year's time. Repeat thyroid ultrasound should be obtained about 2-3 years time by the patient's primary care provider. If the patient becomes hyperthyroid again or the significant change in the size or characteristics of the nodules, the patient returned back to endocrinology Coding Level of Care Code Est Pt Level 3 (02883) Diagnoses Multiple thyroid nodules E04.2
[2023-10-16 07:49] VITALS: BP 106/60; PULSE 67; BMI 19.8
== END 2023-10-16 08:07 | disposition home or self-care (01) ==
PROVIDERS: PCP Internal Medicine; Visit Provider Internal Medicine Endocrinology, Diabetes & Metabolism
DX: E04.2 Nontoxic multinodular goiter (principal)
CPT/HCPCS: 99213

== ENCOUNTER → 2023-10-16 07:40 | Outpatient (BNVA) | payer MEDICARE, SELFPAY | PROVIDERS: PCP Internal Medicine; Visit Provider Internal Medicine Endocrinology, Diabetes & Metabolism | DX: E05.00 Thyrotoxicosis with diffuse goiter without thyrotoxic crisis or storm (principal); E04.2 Nontoxic multinodular goiter | CPT/HCPCS: 99212 ==

== ENCOUNTER 2023-12-25 09:33 | Outpatient (AMB) | payer MEDICARE, SELFPAY ==
[2023-12-25 10:00] VITALS: BP 99/62; PULSE 74; TEMP 36.4; O2SAT 95; BMI 20.1
--- NOTE | 2023-12-25 10:00 | MHC.OFFWIV ---
Intake Vital Signs 12/25/23 10:00 Height 5 ft 6 in Weight 124 lb 6 oz BMI 20.1 BP 99/62 Blood Pressure Location Rt brachial Position Sitting Pulse 74 Pulse Source Pulse Oximeter Temp 97.5 F Temp Source Oral Pulse Oximetry (%) 95 Oxygen Delivery Method Room Air Intake Visit Reasons: EP blocked RT ear, vertigo Intake Note: Pt is here today for slight vertigo and also rigth ear blockage. Pt mentions from the neck up face feels warm. Patient Tobacco Use Status: Current everyday Tobacco user Allergies benzoin Allergy (Unknown, Verified 10/16/23 07:50) Rash fluoxetine [Prozac] Allergy (Unknown, Verified 10/16/23 07:50) Hives hydrocodone [From VICODIN] Adverse Reaction (Intermediate, Verified 10/16/23 07:50) AGITATION oxycodone [From Percocet] Adverse Reaction (Mild, Verified 10/16/23 07:50) AGITATION steri strips Allergy (Unknown, Uncoded 10/16/23 07:50) Unknown Do you need a note to return to daycare/school/sports/work: No HPI EP blocked RT ear, vertigo HPI Details This note is constructed using voice recognition software. While every effort has been made to ensure accuracy, central office frame wirer errors may have been included. The patient is a 68 year old female who presents to the clinic today with right-sided ear blockage with vertigo. She notes that she has an extensive history of vertigo. Typically when she gets vertigo she does a maneuver which he had learned in physical therapy which helps the vertigo. This time however it seems not to be improving as her right ear feels completely blocked. She has some reduced hearing in that ear. She denies pain, fever, chills. She does feel that the area is hot, however she has checked multiple times and she does not have a fever. [facility] Medical History COVID-19 vaccine series completed PONV (postoperative nausea and vomiting) Smoker Breast cancer GERD (gastroesophageal reflux disease) IBS (irritable bowel syndrome) Vitamin D deficiency Panic disorder Neutropenia Thyroid nodule Graves disease Abdominal pain Depression Surgical History Hx of esophagogastroduodenoscopy Hx of colonoscopy S/P breast implant, left History of removal of right breast implant History of bilateral mastectomy Family History Father Throat cancer Mother Lung cancer Maternal Grandmother Breast cancer Social History [facility] Are you a primary childcare center administrator to a significant other at home: No Do you presently have visiting nurse or other home services: No Alcohol intake: never Patient Tobacco Use Status: Current everyday Tobacco user Tobacco use type: Cigarette Cigarette Packs Per Day: 1 Cigarettes Per Day: 20.0 Years Smoked: 45 e-Cigarette/Vaping Use: Never Used Second Hand Smoke Exposure: No service: No Current occupational status: employed Cognitive needs: No Hearing needs: No Vision needs: Yes Review of Systems Const All systems reviewed & are unremarkable except as noted in HPI and below Physical Exam Vital Signs: Last Vital Signs Temp 97.5 F 12/25/23 10:00 Pulse 74 12/25/23 10:00 BP 99/62 12/25/23 10:00 Pulse Ox 95 12/25/23 10:00 Oxygen Delivery Method Room Air 12/25/23 10:00 BMI result Body Mass Index 20.1 Const General: cooperative, healthy appearing, comfortable and no acute distress Orientation/consciousness: patient oriented x3 HEENT Head: Yes normal to inspection and Yes normocephalic Ears: EAC's normal, mastoids normal and unable to visualize TM (cerumen impaction) on the right General nose exam: Normal external nose present Face and sinus: Yes normal facial exam Resp Effort & Inspection: normal respiratory effort and able to speak in complete sentences Neuro General: patient oriented x3 Office Procedures Cerumen Removal From which ear canal was the cerumen removed: right Removal: irrigation Notes: patient tolerated procedure well and no complications (Partial resolution of cerumen impaction) [id number] Irrigation/Lavage Assessment & Plan Assessment & Plan (1) Impacted cerumen of right ear: Code(s): H61.21 - Impacted cerumen, right ear Plan: Partial resolution of cerumen impaction with irrigation and attempt with curette. Advised patient to use Debrox or other cerumen softening drops to help facilitate. Advised patient to monitor for any fever, chills, or pain to the area as this would indicate likely infection. Given her reassuring examination today, we elected to defer treatment as infection is unlikely. Advised patient that she may return after use of Debrox if she continues to have symptoms as she may benefit from repeat irrigation attempts. Plan See above for full details and plan. Coding Level of Care Code Est Pt Level 4 (46634) Diagnoses Impacted cerumen of right ear H61.21 CPT Codes Office Procedure - CPT: 99836-Dwx Irrigation/Lavage ([id number])
== END 2023-12-25 10:42 | disposition home or self-care (01) ==
PROVIDERS: PCP Internal Medicine; Visit Provider Registered Nurse
DX: H61.21 Impacted cerumen, right ear (principal)

== ENCOUNTER → 2023-12-25 09:33 | Outpatient (BNVA) | payer MEDICARE, SELFPAY | PROVIDERS: PCP Internal Medicine; Visit Provider Registered Nurse | DX: H61.21 Impacted cerumen, right ear (principal) | CPT/HCPCS: 69209; 99212 ==

== ENCOUNTER 2023-12-30 09:00 | Outpatient (AMB) | payer MEDICARE, SELFPAY ==
--- OUTSIDE RECORDS SUMMARY | 2023-12-30 09:03 | XMS_ITS ---
Author Organization [facility] Address [address] [place] [address] Care Team Providers Care Youth Worker Name Role Phone Rico Tran MD Primary Care Provider Chad Nguyen Unavailable [phone] MEDICATIONS Medication SIG (Take, Route, Frequency, Duration) Notes Start Date End Date Status Hyoscyamine Sulfate 0.125 MG 1-2 tablets Orally every 4-6 hrs prn abdominal bloating, gas, cramps for 30 Active Encounters Encounter Location Date Provider Diagnosis [facility] [address] [place] [address] 11/06/2023 Chad Calvillo PLAN OF TREATMENT Medication Medication Name Sig Start Date Stop Date Notes Hyoscyamine Sulfate 0.125 MG 1-2 tablets Orally every 4-6 hrs prn abdominal bloating, gas, cramps for 30
--- OUTSIDE RECORDS SUMMARY | 2023-12-30 09:03 | XMS_ITS | Patient Health Record ---
Author Organization [facility] Address [address] [place] [address] Care Team Providers Care Detective Bowling [place] Name Role Phone Rico Tran MD Primary Care Provider Chad Nguyen Unavailable [phone] ALLERGIES Allergen (clinical drug ingredient) Drug/Non Drug Allergy documented on EMR Reaction Allergy Type Onset Date Status Latex Latex Unknown Allergy Active fluoxetine Prozac Unknown Drug Allergy Active acetaminophen / oxycodone Percocet Unknown Drug Allergy Active REASON FOR REFERRAL No Information MEDICATIONS Medication SIG (Take, Route, Frequency, Duration) Notes Start Date End Date Status Hyoscyamine Sulfate 0.125 MG 1-2 tablets Orally every 4-6 hrs prn abdominal bloating, gas, cramps for 30 Active Citalopram Hydrobromide 20 MG TAKE 1 TABLET BY MOUTH EVERY DAY Oral for 30 Active Xanax 0.5 MG 1 tablet Orally Thre e times a day 07/29/2013 Active Vitamin D 25 MCG (1000 UT) 1 tablet Oral ly Once a day for 30 day(s) Active IMMUNIZATIONS Vaccine Route Administration Date Status Comme nts Influenza Unknown 01/17/2021 Refused SOCIAL HISTORY Sex Assigned At : Social History Observation Description Sex Assigned At Unknown PROBLEMS Problem Type ICD Code Onset Dates Problem Status W/U Status Risk SNOMED Code Notes Problem Encounter for screening for malignant neoplasm of colon (Z12.11) Active confirmed 768771733 Problem Irritable bowel syndrome with diarrhea (K58.0) Active confirmed 258004967 Problem Diverticulosis of colon (K57.30) Active confirmed Diverticulosi s of colon (057811438) Encounters Encounter Location Date Provider Diagnosis [facility] [address] [place] [address] 11/06/2023 Chad Calvillo PLAN OF TREATMENT Future Test Test Name Order Date COLONOSCOPY 07/29/2013 COLONOSCOPY 01/17/2021 Insurance Providers Payer Name Payer Address Payer Phone Subscriber Number Group Number Insured Name Patient Relationship to Insured Coverage Start Date Coverage End Date MEDICARE OF [place] [address] [place] [address] [id number] BONNIE CROFT Self - patient is the insured [employer] ATT[employer] CLAIMS [address] [place] [address] [id number] BONNIE CROFT Self - patient is the insured MEDICAL (GENERAL) HISTORY Medical History History ICD Code Upper endoscopy 08-24-2010-negative--norm al duodenal and gastric biopsies Colonoscopy 08-20-2007-1 small serrated adenoma removed GERD Grave's disease-sees [facility] [place] Endocrinology-D jackson Sandoval Denies MD,DM,CVA,Lung disease,renal dise ase Breast cancer--bilateral--on left at age 39 and the right in 2008 Depression Negative screening colonoscopy in 06/2014 Surgical History Surgery Date(Month/Year) Bilateral mastectomy for can cer in 1995 and in 2008, with reconstructive surgery New breast implant on the left at [facility] in 2011 Laparoscopy in her 20's
--- NOTE | 2023-12-30 09:15 | MHC.OFFWIV ---
Intake Vital Signs 12/30/23 09:16 Height 5 ft 6 in Weight 123 lb BMI 19.9 BP 102/60 Blood Pressure Location Rt brachial Position Sitting Pulse 78 Pulse Source Pulse Oximeter Temp 97.9 F Temp Source Oral Pulse Oximetry (%) 98 Intake Visit Reasons: EP RT ear still in pain Intake Note: pt is here for right ear pain still from last week Patient Tobacco Use Status: Current everyday Tobacco user Allergies benzoin Allergy (Unknown, Verified 12/30/23 09:17) Rash fluoxetine [Prozac] Allergy (Unknown, Verified 12/30/23 09:17) Hives hydrocodone [From VICODIN] Adverse Reaction (Intermediate, Verified 12/30/23 09:17) AGITATION oxycodone [From Percocet] Adverse Reaction (Mild, Verified 12/30/23 09:17) AGITATION steri strips Allergy (Unknown, Uncoded 12/30/23 09:17) Unknown Do you need a note to return to daycare/school/sports/work: No HPI HPI Comments History of Present Illness Details Patient is a 68-year-old female complaining of right ear cerumen blockage. She was sitting in this clinic last week where we were unable to flush her right ear. She was sent home and instructed to use Debrox drops once a day and return to the clinic. She tells me she bought the drops and has been using them but she still feels like her ear is blocked. She denies any changes in her hearing or fevers or pain. [facility] Medical History COVID-19 vaccine series completed PONV (postoperative nausea and vomiting) Smoker Breast cancer GERD (gastroesophageal reflux disease) IBS (irritable bowel syndrome) Vitamin D deficiency Panic disorder Neutropenia Thyroid nodule Graves disease Abdominal pain Depression Surgical History Hx of esophagogastroduodenoscopy Hx of colonoscopy S/P breast implant, left History of removal of right breast implant History of bilateral mastectomy Family History Father Throat cancer Mother Lung cancer Maternal Grandmother Breast cancer Social History Housing: Condominium Are you a primary respiratory care practitioner to a significant other at home: No Do you presently have visiting nurse or other home services: No Alcohol intake: never Patient Tobacco Use Status: Current everyday Tobacco user Tobacco use type: Cigarette Cigarette Packs Per Day: 1 Cigarettes Per Day: 20.0 Years Smoked: 45 e-Cigarette/Vaping Use: Never Used Second Hand Smoke Exposure: No service: No Current occupational status: employed Cognitive needs: No Hearing needs: No Vision needs: Yes Review of Systems Const All systems reviewed & are unremarkable except as noted in HPI and below Physical Exam Vital Signs: Last Vital Signs Temp 97.9 F 12/30/23 09:16 Pulse 78 12/30/23 09:16 BP 102/60 12/30/23 09:16 Pulse Ox 98 12/30/23 09:16 BMI result Body Mass Index 19.9 Const General: cooperative, healthy appearing, comfortable and no acute distress Orientation/consciousness: patient oriented x3 HEENT Head: Yes normal to inspection Ears: hearing grossly normal bilaterally, external ears normal, TM normal on the left, mastoids normal, Abnormal EAC present cerumen impaction on the right and unable to visualize TM (cerumen blockage) on the right General nose exam: Normal external nose present Face and sinus: Yes normal facial exam Resp Effort & Inspection: normal respiratory effort and able to speak in complete sentences Neuro General: patient oriented x3 Office Procedures Cerumen Removal From which ear canal was the cerumen removed: right Removal: irrigation Notes: patient tolerated procedure well, no complications and ear canal clear [id number] Irrigation/Lavage Assessment & Plan Assessment & Plan (1) Impacted cerumen of right ear: Code(s): H61.21 - Impacted cerumen, right ear Plan: Able to flush cerumen from the right ear easily. Recommended patient continue to use the Debrox drops as a maintenance every 2-3 weeks in her right ear. Plan See above Coding Level of Care Code Est Pt Level 3 (24047) Diagnoses Impacted cerumen of right ear H61.21 CPT Codes Office Procedure - CPT: 80557-Ket Irrigation/Lavage ([id number])
[2023-12-30 09:16] VITALS: BP 102/60; PULSE 78; TEMP 36.6; O2SAT 98; BMI 19.9
== END 2023-12-30 09:49 | disposition home or self-care (01) ==
PROVIDERS: PCP Internal Medicine; Visit Provider Physician Assistant
DX: H61.21 Impacted cerumen, right ear (principal)

== ENCOUNTER → 2023-12-30 09:00 | Outpatient (BNVA) | payer MEDICARE, SELFPAY | PROVIDERS: PCP Internal Medicine; Visit Provider Physician Assistant | DX: H61.21 Impacted cerumen, right ear (principal) | CPT/HCPCS: 69209; 99212 ==

== ENCOUNTER 2024-01-08 10:41 | Outpatient (AMB) | payer MEDICARE, SELFPAY ==
[2024-01-08 10:45] VITALS: BP 124/78; PULSE 75; O2SAT 95; BMI 19.9
--- NOTE | 2024-01-08 10:45 | MHC.PC.OV ---
Vital Signs 01/08/24 10:45 Height 5 ft 6 in Weight 123 lb BMI 19.9 BP 124/78 Blood Pressure Location Lt brachial Position Sitting Pulse 75 Pulse Source Pulse Oximeter Pulse Oximetry (%) 95 Oxygen Delivery Method Room Air Intake Visit Reasons: NervePain Intake Note: Pt reports pain in her neck that comes around to the sides of her head and down to her shoulders. Software Lead Required: No Accompanied by: Self / Same As Patient Allergies benzoin Allergy (Unknown, Verified 01/08/24 10:45) Rash fluoxetine [Prozac] Allergy (Unknown, Verified 01/08/24 10:45) Hives hydrocodone [From VICODIN] Adverse Reaction (Intermediate, Verified 01/08/24 10:45) AGITATION oxycodone [From Percocet] Adverse Reaction (Mild, Verified 01/08/24 10:45) AGITATION steri strips Allergy (Unknown, Uncoded 01/08/24 10:45) Unknown Medication List - Last Reconciled 01/08/24 by Rico Tran MD alprazolam 0.5 mg PO BEDTIME PRN citalopram 20 mg PO DAILY mastectomy bra (bra, mastectomy) As directed Tobacco use date assessed: 03/17/23 Fall risk assessment: No Falls in past year Last assessed Fall Risk: 01/08/24 Dental Screening Dental Screen Date: 03/17/23 HPI NervePain HPI Details neck stiffness with facial paresthesias; similar event 10 years ago PFSH Medical History COVID-19 vaccine series completed PONV (postoperative nausea and vomiting) Smoker Breast cancer GERD (gastroesophageal reflux disease) IBS (irritable bowel syndrome) Vitamin D deficiency Panic disorder Neutropenia Thyroid nodule Graves disease Abdominal pain Depression Surgical History Hx of esophagogastroduodenoscopy Hx of colonoscopy S/P breast implant, left History of removal of right breast implant History of bilateral mastectomy Family History Father Throat cancer Mother Lung cancer Maternal Grandmother Breast cancer Social History Housing: Condominium Are you a primary healthcare management consultant to a significant other at home: No Do you presently have visiting nurse or other home services: No Alcohol intake: never Patient Tobacco Use Status: Current everyday Tobacco user Tobacco use type: Cigarette Cigarette Packs Per Day: 1 Cigarettes Per Day: 20.0 Years Smoked: 45 Packs Per Year: 45 Packs per year/per ci.00 e-Cigarette/Vaping Use: Never Used Second Hand Smoke Exposure: No service: No Current occupational status: employed Cognitive needs: No Hearing needs: No Vision needs: Yes Questionnaire Thrive Questionnaire Date Thrive assessed: 03/17/23 AUDIT C Alcohol Use Questionnaire (AUDIT-C) 2. How many drinks containing alcohol do you have on a typical day when you are drinking?: 1 or 2 3. How often do you have six or more drinks on one occasion?: Never Total Score: 0 IRMA-7 AMB Questionnaire IRMA-7 Date IRMA - 7 assessed: 03/17/23 Source: Developed by Drs. Chad Perkins, Michell Carrillo, Teodoro Stafford and colleagues, with an educational alexandra from [employer]. Review of Systems Const Denies chills, Denies headache(s) and Denies weight loss ENT Denies headache(s) Card Denies chest pain, Denies syncope, Denies irregular heart rhythm and Denies dyspnea Resp Denies chest congestion, Denies cough and Denies dyspnea GI Denies abdominal pain, Denies change in stool character, Denies nausea and Denies vomiting Musc Denies deformity and Denies joint swelling Neuro Denies syncope and Denies headache(s) Physical exam (Primary Care) Vital Signs: Last Vital Signs Pulse 75 01/08/24 10:45 BP 124/78 01/08/24 10:45 Pulse Ox 95 01/08/24 10:45 Oxygen Delivery Method Room Air 01/08/24 10:45 BMI result Body Mass Index 19.9 Tobacco/Smoking Status: Tobacco use Status Tobacco use date assessed 03/17/23 01/08/24 10:49 Patient Tobacco Use Status Current everyday Tobacco 01/08/24 10:49 Tobacco use type Cigarette 01/08/24 10:49 e-Cigarette/Vaping Use Never Used 01/08/24 10:49 Thrive Assessment: Date of Thrive Assessment Date Thrive assessed 03/17/23 01/08/24 10:49 Const General: cooperative, comfortable, no acute distress and alert Neck Neck: Yes no lymphadenopathy Thyroid: Thyroid normal Resp Effort & Inspection: normal respiratory effort Auscultation: clear to auscultation bilaterally Percussion: percussion normal Cardio Jugular venous distension: no JVD Palpation: normal PMI Rate: regular rate Rhythm: regular rhythm Heart sounds: S1 normal heart sound present and S2 normal heart sound present GI Inspection: Yes normal to inspection Palpation (GI): No hepatosplenomegaly present Skin General skin exam: no rashes or lesions noted Extrem General: Yes no clubbing, cyanosis or edema Coding Level of Care Code Est Pt Level 3 (88375) Diagnoses Cervical radiculopathy M54.12 Assessment & Plan Assessment & Plan (1) Cervical radiculopathy: Code(s): M54.12 - Radiculopathy, cervical region Category: Medical Plan: xr and rx Orders: Orders XR cervical spine 2V Today M54.2 - Cervicalgia Medications: New cyclobenzaprine 10 mg PO TID 30 days PRN 30 tabs 2RF muscle spasm
== END 2024-01-08 10:56 | disposition home or self-care (01) ==
LOC: HO.HMCH 10:42
PROVIDERS: PCP Internal Medicine; Visit Provider Internal Medicine
DX: M54.12 Radiculopathy, cervical region (principal)

== ENCOUNTER → 2024-01-08 10:41 | Outpatient (BNVA) | payer MEDICARE, SELFPAY | PROVIDERS: PCP Internal Medicine; Visit Provider Internal Medicine | DX: M54.12 Radiculopathy, cervical region (principal) | CPT/HCPCS: 99212 ==

== ENCOUNTER 2024-01-09 07:06 | Outpatient (REF) | payer MEDICARE, SELFPAY ==
--- NOTE | ~2024-01-09 | XR_ITS ---
EXAMINATION: XR CERVICAL SPINE CLINICAL INFORMATION: Cervicalgia. COMPARISON: Cervical spine MRI dated 03/24/2012. TECHNIQUE: AP, lateral, open-mouth, and foraminal views of the cervical spine. FINDINGS: Straightening of the normal cervical lordosis which may be positional or related to muscular spasm. Minimal grade 1 retrolisthesis of C5 and C6, unchanged. No acute fracture or subluxation. No loss of vertebral body height. Mild loss of intervertebral disc height with tiny endplate osteophytes at C5-C6 and C6-C7, unchanged. No concerning lytic or blastic osseous lesion. Unremarkable prevertebral soft tissues. XR/XR cervical spine 2V IMPRESSION: 1. Straightening of the normal cervical lordosis which may be positional or related to muscle spasm. Minimal grade 1 retrolisthesis of C5 and C6, unchanged. 2. Mild degenerative disc disease at C5-C6 and C6-C7, unchanged. Electronically signed by: Abelino Ward MD 01/09/2024 11:23 AM JOAQUÍN
== END 2024-01-09 07:07 | disposition home or self-care (01) ==
LOC: HO.XRAY 07:06
PROVIDERS: PCP Internal Medicine; Visit Provider Internal Medicine
DX: M54.2 Cervicalgia (principal)
CPT/HCPCS: 72040

== ENCOUNTER 2024-05-06 10:30 | Outpatient (AMB) | payer MEDICARE, SELFPAY ==
--- NOTE | 2024-05-06 10:40 | MHC.PC.OV ---
Vital Signs 05/06/24 10:41 Height 5 ft 6 in Weight 123 lb BMI 19.9 BP 108/62 Blood Pressure Location Rt brachial Position Sitting Pulse 67 Pulse Source Pulse Oximeter Pulse Oximetry (%) 95 Oxygen Delivery Method Room Air Intake Visit Reasons: Pain Disorder Allergies benzoin Allergy (Unknown, Verified 05/06/24 10:41) Rash fluoxetine [Prozac] Allergy (Unknown, Verified 05/06/24 10:41) Hives hydrocodone [From VICODIN] Adverse Reaction (Intermediate, Verified 05/06/24 10:41) AGITATION oxycodone [From Percocet] Adverse Reaction (Mild, Verified 05/06/24 10:41) AGITATION steri strips Allergy (Unknown, Uncoded 05/06/24 10:41) Unknown Medication List - Last Reconciled 05/06/24 by Rico Tran MD alprazolam 0.5 mg PO BEDTIME PRN 90 days citalopram 20 mg PO DAILY cyclobenzaprine 10 mg PO TID PRN 30 days mastectomy bra (bra, mastectomy) As directed Tobacco use date assessed: 05/06/24 Fall risk assessment: No Falls in past year Last assessed Fall Risk: 05/06/24 Dental Screening Dental Screen Date: 05/06/24 Did you have a dental visit in the last 12 months?: Yes Did you have a dental problem in the last 6 months where you did not have access to dental care?: No Was dental information given to patient?: Patient has dentist HPI Pain Disorder HPI Details depression and anxiety on rx; doing well PFSH Medical History COVID-19 vaccine series completed PONV (postoperative nausea and vomiting) Smoker Breast cancer GERD (gastroesophageal reflux disease) IBS (irritable bowel syndrome) Vitamin D deficiency Panic disorder Neutropenia Thyroid nodule Graves disease Abdominal pain Depression Surgical History Hx of esophagogastroduodenoscopy Hx of colonoscopy S/P breast implant, left History of removal of right breast implant History of bilateral mastectomy Family History Father Throat cancer Mother Lung cancer Maternal Grandmother Breast cancer Social History (Reviewed 10/16/23 @ 07:50 by JOSUÉ CumminsMarlene [facility] Are you a primary career information specialist to a significant other at home: No Do you presently have visiting nurse or other home services: No Alcohol intake: never Patient Tobacco Use Status: Current everyday Tobacco user Tobacco use type: Cigarette Cigarette Packs Per Day: 1 Cigarettes Per Day: 20.0 Years Smoked: 45 e-Cigarette/Vaping Use: Never Used Second Hand Smoke Exposure: No service: No Current occupational status: employed Cognitive needs: No Hearing needs: No Vision needs: Yes Questionnaire PHQ-9 Over the last 2 weeks, how often have you been bothered by any of the following problems? 1. Little interest or pleasure in doing things: not at all 2. Feeling down, depressed, or hopeless: not at all 3. Trouble falling or staying asleep, or sleeping too much: not at all 4. Feeling tired or having little energy: not at all 5. Poor appetite or overeating: not at all 6. Feeling bad about yourself - or that you are a failure or have let yourself or your family down: not at all 7. Trouble concentrating on things, such as reading the newspaper or watching television: not at all 8. Moving or speaking so slowly that other people could have noticed. Or the opposite - being so fidgety or restless that you have been moving around a lot more than usual: not at all 9. Thoughts that you would be better off or of hurting yourself in some way: not at all Total score: 0 Depression Screening Interpretation: Negative Depression Screening Done: Yes 85485 - PHQ-9 Billing: Yes Source: Developed by Drs. Chad Perkins, Michell Carrillo, Teodoro Stafford and colleagues, with an educational alexandra from [employer]. Thrive Questionnaire Date Thrive assessed: 05/06/24 I am a: Patient What is your living situation today?: I have a steady place to live Within the past 12 months, did the food you bought not last and you didn't have the money to get more?: Never true Within the past 12 months, did you worry whether your food would run out before you got money to buy more?: Never true Do you have trouble paying for medicines?: No Do you have trouble getting transportation to medical appointments?: No Do you have trouble paying your heating and electricity bill?: No Do you have trouble taking care of your child, family member or friend?: No Do you have trouble with day-to-day activities such as bathing, preparing meals, shopping, managing finances, etc.?: No Are you currently unemployed and looking for a job?: No Are you interested in more education?: No Currently or been in a relationship where the following occur: No concerns reported THRIVE Score: 0 AUDIT C Alcohol Use Questionnaire (AUDIT-C) 2. How many drinks containing alcohol do you have on a typical day when you are drinking?: 1 or 2 3. How often do you have six or more drinks on one occasion?: Never Total Score: 0 IRMA-7 AMB Questionnaire IRMA-7 Date IRMA - 7 assessed: 05/06/24 Feeling nervous, anxious, or on edge: 0 = Not at all Not being able to stop or control worryin = Not at all Worrying too much about different things: 0 = Not at all Trouble relaxin = Not at all Being so restless that it is hard to sit still: 0 = Not at all Becoming easily annoyed or irritable: 0 = Not at all Feeling afraid as if something awful might happen: 0 = Not at all Total IRMA-7 score (0-4 normal; 5-9 mild; 10-14 moderate; 15-21 severe): 0 Source: Developed by Drs. Chad Perkins, Michell Carrillo, Teodoro Stafford and colleagues, with an educational alexandra from [employer]. Review of Systems Const Denies chills, Denies headache(s) and Denies weight loss ENT Denies headache(s) Card Denies chest pain, Denies syncope, Denies irregular heart rhythm and Denies dyspnea Resp Denies chest congestion, Denies cough and Denies dyspnea GI Denies abdominal pain, Denies change in stool character, Denies nausea and Denies vomiting Musc Denies deformity and Denies joint swelling Neuro Denies syncope and Denies headache(s) Physical exam (Primary Care) Vital Signs: Last Vital Signs Pulse 67 05/06/24 10:41 BP 108/62 05/06/24 10:41 Pulse Ox 95 05/06/24 10:41 Oxygen Delivery Method Room Air 05/06/24 10:41 BMI result Body Mass Index 19.9 Tobacco/Smoking Status: Tobacco use Status Tobacco use date assessed 05/06/24 05/06/24 10:46 Patient Tobacco Use Status Current everyday Tobacco 05/06/24 10:46 Tobacco use type Cigarette 05/06/24 10:46 e-Cigarette/Vaping Use Never Used 05/06/24 10:46 PHQ-9: PHQ-9 Score PHQ-9: Total score 0 05/06/24 10:46 Depression Screening Interpretation: Negative Thrive Assessment: Date of Thrive Assessment Date Thrive assessed 05/06/24 05/06/24 10:46 Currently or been in a relationship where the following occur: No concerns reported Const General: cooperative, comfortable, no acute distress and alert Neck Neck: Yes no lymphadenopathy Thyroid: Thyroid normal Resp Effort & Inspection: normal respiratory effort Auscultation: clear to auscultation bilaterally Percussion: percussion normal Cardio Jugular venous distension: no JVD Palpation: normal PMI Rate: regular rate Rhythm: regular rhythm Heart sounds: S1 normal heart sound present and S2 normal heart sound present GI Inspection: Yes normal to inspection Palpation (GI): No hepatosplenomegaly present Skin General skin exam: no rashes or lesions noted Extrem General: Yes no clubbing, cyanosis or edema Coding Level of Care Code Est Pt Level 3 (29591) Diagnoses Panic disorder F41.0 Additional Codes PHQ-9 - 36897 - PHQ-9 Billing: Yes ([id number]) Assessment & Plan Assessment & Plan (1) Panic disorder: Code(s): F41.0 - Panic disorder [episodic paroxysmal anxiety] Category: Medical Plan: stable; same rx
[2024-05-06 10:41] VITALS: BP 108/62; PULSE 67; O2SAT 95; BMI 19.9
--- OUTSIDE RECORDS SUMMARY | 2024-05-06 12:32 | XMS_ITS | Patient Health Record ---
Author Organization [facility] Address [address] [place] [address] Care Team Providers Care Lime Kiln Operator Name Role Phone Rico Tran MD Primary Care Provider Chad Nguyen Unavailable [phone] Allergies Allergen (clinical drug ingredient) Drug/Non Drug Allergy documented on EMR Reaction Allergy Type Onset Date Status Latex Latex Unknown Allergy Active fluoxetine Prozac Unknown Drug Allergy Active acetaminophen / oxycodone Percocet Unknown Drug Allergy Active Reason For Referral No Information Medications Medication SIG (Take, Route, Frequency, Duration) Notes [...] Once a day for 30 day(s) Active Immunizations Vaccine Route Administration Date Status Comme nts Influenza Unknown 01/17/2021 Refused Problems Problem Type SNOMED Code ICD Code Onset Dates Problem Status W/U Status Risk Notes Problem 346525892 Encounter for screening for malignant neoplasm of colon (Z12.11) Active confirmed Problem 010702947 Irritable bowel syndrome with diarrhea (K58.0) Active confirmed Problem Diverticulosis of colon (720841634) Diverticulosis of colon (K57.30) Active confirmed Encounters Encounter Location Date Provider Diagnosis [facility] [address] [place] [address] 11/06/2023 Chad Calvillo Plan Of Treatment Future Test Test Name Order Date COLONOSCOPY 07/29/2013 COLONOSCOPY 01/17/2021 Insurance Providers Payer Name Payer Address Payer Phone Subscriber Number Group Number Insured Name Patient Relationship to Insured Coverage Start Date Coverage End Date MEDICARE OF [place] [address] [place] [id number] BONNIE CROFT Self - patient is the insured MEDEX ATTN CLAIMS [address] [place] [address] [id number] BONNIE CROFT Self - patient is the insured Medical (General) History Medical History History ICD Code Upper endoscopy 08-24-2010-negative--norm al duodenal and gastric biopsies Colonoscopy 08-20-2007-1 small serrated adenoma removed GERD Grave's disease-[place] [facility] [place]ocrinology-Sundar Sandoval Denies [place],DM,CVA,Lung disease,renal dise ase Breast cancer--bilateral--on left at age 39 and the right in 2008 Depression Negative screening colonoscopy in 06/2014 Surgical History Surgery Date(Month/Year) Bilateral mastectomy for can cer in 1995 and in 2008, with reconstructive surgery New breast implant on the left at [facility] in 2011 Laparoscopy in her 20's
--- OUTSIDE RECORDS SUMMARY | 2024-05-06 12:32 | XMS_ITS ---
Author Organization [facility] Address [address] [place] [address] Care Team Providers Care Ladies Underwear Operator Name Role Phone Rico Tran MD Primary Care Provider Chad Nguyen [phone] Medications Medication SIG (Take, Route, Frequency, Duration) Notes Start Date End Date Status Hyoscyamine Sulfate 0.125 MG 1-2 tablets Orally every 4-6 hrs prn abdominal bloating, gas, cramps for 30 Active Encounters Encounter Location Date Provider Diagnosis [facility] [address] [place] [address] 11/06/2023 Chad Calvillo Plan Of Treatment Medication Medication Name Sig Start Date Stop Date Notes Hyoscyamine Sulfate 0.125 MG 1-2 tablets Orally every 4-6 hrs prn abdominal bloating, gas, cramps for 30 Progress Notes * BONNIE CROFT ADOB: [birth year] (68 yo F)Acc No.[id number]:11/06/2023 Patient:?BONNIE CROFT :1955???Age:68 Y???Sex:Female Address:[place] [place] [address] * Refills? Refill Hyoscyamine Sulfate Tablet, 0.125 MG, Orally, 40, 1-2 tablets, every 4-6 hrs prn abdominal bloating, gas, cramps, 30, Refills=3 * true * Date:? Generated for Printi ng/Facorazong/eTransmitting on:?05/06/2024 12:32 PM EST
== END 2024-05-06 11:01 | disposition home or self-care (01) ==
PROVIDERS: PCP Internal Medicine; Visit Provider Internal Medicine
DX: F41.0 Panic disorder [episodic paroxysmal anxiety] (principal)

== ENCOUNTER → 2024-05-06 10:30 | Outpatient (BNVA) | payer MEDICARE, SELFPAY | PROVIDERS: PCP Internal Medicine; Visit Provider Internal Medicine | DX: F41.0 Panic disorder [episodic paroxysmal anxiety] (principal) | CPT/HCPCS: 96127; 99212 ==

== ENCOUNTER 2024-05-12 06:19 | Outpatient (REF) | payer MEDICARE, SELFPAY | END 2024-05-12 06:20 | disposition home or self-care (01) | LOC: HO.HMGCLDS 06:19 | PROVIDERS: PCP Internal Medicine; Visit Provider Internal Medicine | DX: Z13.29 Encounter for screening for other suspected endocrine disorder (principal) | CPT/HCPCS: 36415; 84443 ==

== ENCOUNTER 2024-09-21 12:57 | Outpatient (AMB) | payer MEDICARE, SELFPAY ==
[2024-09-21 13:04] VITALS: BP 90/60; PULSE 72; TEMP 36.7; O2SAT 96; BMI 19.5
--- NOTE | 2024-09-21 13:04 | MHC.OFFWIV ---
Intake Vital Signs 09/21/24 13:04 Height 5 ft 6 in Weight 121 lb BMI 19.5 BP 90/60 Blood Pressure Location Rt brachial Position Sitting Pulse 72 Pulse Source Pulse Oximeter Temp 98.1 F Temp Source Oral Pulse Oximetry (%) 96 Oxygen Delivery Method Room Air Intake Visit Reasons: EP 2 bumps on vagina Intake Note: presents with growth on perineal area that opens and drains and tender when wiping, another lesion just inside vagina no difficulties Patient Tobacco Use Status: Current everyday Tobacco user Allergies benzoin Allergy (Unknown, Verified 09/21/24 13:05) Rash fluoxetine (Prozac) Allergy (Unknown, Verified 09/21/24 13:05) Hives hydrocodone (From VICODIN) Adverse Reaction (Intermediate, Verified 09/21/24 13:05) AGITATION oxycodone (From Percocet) Adverse Reaction (Mild, Verified 09/21/24 13:05) AGITATION steri strips Allergy (Unknown, Uncoded 05/06/24 10:41) Unknown Do you need a note to return to daycare/school/sports/work: No HPI HPI Comments History of Present Illness Details History of Present Illness - The patient is a 69-year-old female presenting with concerns about two bumps and a suspected hemorrhoid. - Reports two bumps for three to four weeks, one inside the vagina and another between the vagina and rectum. - The perineal bump has drained pus and blood, refilled, while the vaginal bump remains filled. - Denies pain, fever, or blood during urination or defecation. - Attempted hemorrhoid cream without relief, suspecting hemorrhoids. - No prior history of similar issues. - Difficulty accessing [employer] and primary care appointments, leading to urgent care visit. - She denies discharge, bleeding, redness, or warmth. - She has no vaginal pain or itching. - She has no dysuria or hematuria. Physical Exam General: Cooperative, healthy appearing, comfortable, no acute distress and well developed Respiratory: Normal respiratory effort and able to speak in complete sentences. Clear to auscultation bilaterally Cardiovascular: Regular rate and rhythm. Normal S1 and S2 GI: Normal to inspection. Soft to palpation and nontender. No guarding or rebound tenderness noted. Skin: No rashes or lesions noted, except for two bumps, one just inside the vagina and one between the vagina and rectum. Hard to the touch and non-painful on palpation. No fluctuance noted. Neuro: Patient oriented x3 : Hemorrhoid noted in the rectum. Patient was informed and verbally consented to the use of an ambient scribe for clinic note documentation during this visit. [facility] Medical History COVID-19 vaccine series completed PONV (postoperative nausea and vomiting) Smoker Breast cancer GERD (gastroesophageal reflux disease) IBS (irritable bowel syndrome) Vitamin D deficiency Panic disorder Neutropenia Thyroid nodule Graves disease Abdominal pain Depression Surgical History Hx of esophagogastroduodenoscopy Hx of colonoscopy S/P breast implant, left History of removal of right breast implant History of bilateral mastectomy Family History Father Throat cancer Mother Lung cancer Maternal Grandmother Breast cancer Social History Housing: Condominium Are you a primary college and career counselor to a significant other at home: No Do you presently have visiting nurse or other home services: No Alcohol intake: never Patient Tobacco Use Status: Current everyday Tobacco user Tobacco use type: Cigarette Cigarette Packs Per Day: 1 Cigarettes Per Day: 20.0 Years Smoked: 45 e-Cigarette/Vaping Use: Never Used Second Hand Smoke Exposure: No service: No Current occupational status: employed Cognitive needs: No Hearing needs: No Vision needs: Yes Review of Systems Const All systems reviewed & are unremarkable except as noted in HPI and below Physical Exam Vital Signs: Last Vital Signs Temp 98.1 F 09/21/24 13:04 Pulse 72 09/21/24 13:04 BP 90/60 09/21/24 13:04 Pulse Ox 96 09/21/24 13:04 Oxygen Delivery Method Room Air 09/21/24 13:04 BMI result Body Mass Index 19.5 Assessment & Plan Assessment & Plan (1) Vaginal lump: Code(s): N94.9 - Unspecified condition associated with female genital organs and menstrual cycle Plan Most likely cyst vs abscess vs folliculitis Plan - no obvious abscess noted in the vaginal region - advised to apply warm compresses - mupirocin cream to the area BID-TID - f/u with OBGYN and PCP Medications: New mupirocin 2% 1 appl topical TID 22 grams 0RF 7 days Coding Level of Care Code Est Pt Level 4 (99331) Diagnoses Vaginal lump N94.9
--- OUTSIDE RECORDS SUMMARY | 2024-09-21 13:59 | XMS_ITS | Patient Health Record ---
Author Organization [facility] Address [address] [place] [address] Care Team Providers Care Furniture Shampooer Name Role Phone Rico Tran MD Primary Care Provider Chad Nguyen Unavailable [phone] Allergies Allergen (clinical drug ingredient) Drug/Non Drug [...] Problem Status W/U Status Risk Notes Problem [id number] Encounter for screening for malignant neoplasm of colon (Z12.11) Active confirmed Problem 141149144 Irritable bowel syndrome with diarrhea (K58.0) Active confirmed Problem Diverticulosis o f colon (K57.30) Active confirmed Encounters Encounter Location Date Provider Diagnosis [facility] [address] [place] [address] 11/06/2023 Chad Calvillo Plan Of Treatment Future Test Test Name Order Date COLONOSCOPY 07/29/2013 COLONOSCOPY 01/17/2021 Insurance Providers Payer Name Payer Address Payer Phone Subscriber Number Group Number Insured Name Patient Relationship to Insured Coverage Start Date Coverage End Date MED[place]ARE OF [place] [address] [place] [address] [phone] [id number] BONNIE CROFT Self - patient is the insured MEDEX ATTN CLAIMS [address] [place] [address] [phone] [id number] BONNIE CROFT Self - patient is the insured Medical (General) History Medical History History ICD Code Upper endoscopy 08-24-2010-negative--norm al duodenal and gastric biopsies Colonoscopy 08-20-2007-1 small serrated adenoma removed GERD Grave's disease-sees [facility] [place] Endocrinology-D jackson Sandoval Denies [place],DM,CVA,Lung disease,renal dise ase Breast cancer--bilateral--on left at age 39 and the right in 2008 Depression Negative screening colonoscopy in 06/2014 Surgical History Surgery Date(Month/Year) Bilateral mastectomy for can cer in 1995 and in 2008, with reconstructive surgery New breast implant on the left at [facility] in 2011 Laparoscopy in her 20's
== END 2024-09-21 15:22 | disposition home or self-care (01) ==
PROVIDERS: PCP Internal Medicine; Visit Provider Physician Assistant Medical
DX: N94.9 Unspecified condition associated with female genital organs and menstrual cycle (principal)

== ENCOUNTER → 2024-09-21 12:57 | Outpatient (BNVA) | payer MEDICARE, SELFPAY | PROVIDERS: PCP Internal Medicine; Visit Provider Physician Assistant Medical | DX: N94.9 Unspecified condition associated with female genital organs and menstrual cycle (principal) | CPT/HCPCS: 99212 ==

== ENCOUNTER 2024-11-02 07:39 | Outpatient (AMB) | payer MEDICARE, SELFPAY ==
--- OUTSIDE RECORDS SUMMARY | 2024-11-02 07:43 | XMS_ITS | Patient Health Record ---
Author Organization [facility] Address [address] [place] [address] Care Team Providers Care Machine Guide Base Winder Name Role Phone Rico Tran MD Primary Care Provider Chad Nguyen Unavailable [phone] Allergies Allergen (clinical drug ingredient) Drug/Non Drug [...] Problem Status W/U Status Risk Notes Problem 361905583 Encounter for screening for malignant neoplasm of colon (Z12.11) Active confirmed Problem 147377182 Irritable bowel syndrome with diarrhea (K58.0) Active confirmed Problem Diverticulosis of colon (295964143) Diverticulosis of colon (K57.30) Active confirmed Encounters Encounter Location Date Provider Diagnosis [facility] [address] [place] [address] 11/06/2023 Chad Calvillo Plan Of Treatment Future Test Test Name Order Date COLONOSCOPY 07/29/2013 COLONOSCOPY 01/17/2021 Insurance Providers Payer Name Payer Address Payer Phone Subscriber Number Group Number Insured Name Patient Relationship to Insured Coverage Start Date Coverage End Date MED[place]ARE OF [place] [address] [place] [id number] BONNIE CROFT Self - patient is the insured MED[employer] ATTN CLAIMS [address] [place] [address] [id number] BONNIE CROFT Self - patient is the insured Medical (General) History Medical History History ICD Code Upper endoscopy 08-24-2010-negative--norm al duodenal and gastric biopsies Colonoscopy 08-20-2007-1 small serrated adenoma removed [place]ERD Grave's disease[place] [facility] [place]-Sundar Snadoval Denies [place],DM,CVA,Lung disease,renal dise ase Breast cancer--bilateral--on left at age 39 and the right in 2008 Depression Negative screening colonoscopy in 06/2014 Surgical History Surgery Date(Month/Year) Bilateral mastectomy for can cer in 1995 and in 2008, with reconstructive surgery New breast implant on the left at [facility] in 2011 Laparoscopy in her 20's
[2024-11-02 07:45] VITALS: BP 110/68; PULSE 69; O2SAT 95; BMI 19.4
--- NOTE | 2024-11-02 07:45 | A.OFFPC_ITS ---
Vital Signs 3 11/02/24 07:45 Height 5 ft 6 in Weight 120 lb BMI 19.4 BP 110/68 Blood Pressure Location Rt brachial Position Sitting Pulse 69 Pulse Source Pulse Oximeter Pulse Oximetry (%) 95 Oxygen Delivery Method Room Air Intake Visit Reasons: 6 Month F/U Allergies benzoin Allergy (Unknown, Verified 11/02/24 08:05) Rash fluoxetine (Prozac) Allergy (Unknown, Verified 11/02/24 08:05) Hives hydrocodone (From VICODIN) Adverse Reaction (Intermediate, Verified 11/02/24 08:05) AGITATION oxycodone (From Percocet) Adverse Reaction (Mild, Verified 11/02/24 08:05) AGITATION steri strips Allergy (Unknown, Uncoded 11/02/24 08:05) Unknown Medication List - Last Reconciled 11/02/24 by Ying Centeno PA-C alprazolam 0.5 mg PO BEDTIME PRN 90 days citalopram 20 mg PO DAILY cyclobenzaprine 10 mg PO TID PRN 30 days mastectomy bra (bra, mastectomy) As directed Tobacco use date assessed: 11/02/24 Fall risk assessment: No Falls in past year Last assessed Fall Risk: 11/02/24 Dental Screening Dental Screen Date: 11/02/24 Did you have a dental visit in the last 12 months?: Yes Did you have a dental problem in the last 6 months where you did not have access to dental care?: No Was dental information given to patient?: Patient has dentist HPI 6 Month F/U 2 HPI0 Details 69-year-old female with past medical his tory of Graves disease, thyroid nodule, neutropenia, panic disorder, bilateral breast cancer, chronic GERD last seen 05/[address] Tran coming in for transfer care/follow up. In review of the notes, patient was seen in walk-in clinic 08/2024 advised warm compresses and mupirocin cream b.i.d. and follow up with gynecology. Presenting with evaluation of lumps and bumps, management of insomnia, and assessment of skin biopsy site irritation. History of breast cancer at ages 39, 53, and 58, with radiation therapy at age 58. Post-radiation implant deterioration led to removal, leaving compromised skin. Reports vaginal dryness, exploring non-estrogenic options due to breast cancer history. Continues smoking, previously tried Chantix and gum, interested in retrying Chantix despite past depressive symptoms. Uses alprazolam nightly, often halved, with variable effectiveness. She also continues to have the vaginal bump that was evaluated back in August that has been growing or changing in his still nontender. The lump towards the anus has since resolved. [facility] Medical History COVID-19 vaccine series completed PONV (postoperative nausea and vomiting) Smoker Breast cancer GERD (gastroesophageal reflux disease) IBS (irritable bowel syndrome) Vitamin D deficiency Panic disorder Neutropenia Thyroid nodule Graves disease Abdominal pain Depression Surgical History Hx of esophagogastroduodenoscopy Hx of colonoscopy S/P breast implant, left History of removal of right breast implant History of bilateral mastectomy Family History Father Throat cancer Mother Lung cancer Maternal Grandmother Breast cancer Social History Housing: Condominium Are you a primary field care manager to a significant other at home: No Do you presently have visiting nurse or other home services: No Alcohol intake: never Patient Tobacco Use Status: Current everyday Tobacco user Tobacco use type: Cigarette Cigarette Packs Per Day: 1 Cigarettes Per Day: 20.0 Years Smoked: 45 e-Cigarette/Vaping Use: Never Used Second Hand Smoke Exposure: Yes service: No Current occupational status: retired Cognitive needs: No Hearing needs: No Vision needs: Yes Questionnaire PHQ-9 Over the last 2 weeks, how often have you been bothered by any of the following problems? 1. Little interest or pleasure in doing things: not at all 2. Feeling down, depressed, or hopeless: not at all 3. Trouble falling or staying asleep, or sleeping too much: not at all 4. Feeling tired or having little energy: not at all 5. Poor appetite or overeating: not at all 6. Feeling bad about yourself - or that you are a failure or have let yourself or your family down: not at all 7. Trouble concentrating on things, such as reading the newspaper or watching television: not at all 8. Moving or speaking so slowly that other people could have noticed. Or the opposite - being so fidgety or restless that you have been moving around a lot more than usual: not at all 9. Thoughts that you would be better off or of hurting yourself in some way: not at all Total score: 0 Depression Screening Interpretation: Negative Depression Screening Done: Yes Source: Developed by Drs. Chad Perkins, Michell Carrillo, Teodoro Stafford and colleagues, with an educational alexandra from [employer]. Thrive Questionnaire Date Thrive assessed: 10/26/24 I am a: Patient What is your living situation today?: I have a steady place to live Within the past 12 months, did the food you bought not last and you didn't have the money to get more?: Never true Within the past 12 months, did you worry whether your food would run out before you got money to buy more?: Never true Do you have trouble paying for medicines?: No Do you have trouble getting transportation to medical appointments?: No Do you have trouble paying your heating and electricity bill?: No Do you have trouble taking care of your child, family member or friend?: No Do you have trouble with day-to-day activities such as bathing, preparing meals, shopping, managing finances, etc.?: No Are you currently unemployed and looking for a job?: No Are you interested in more education?: No Please select the resources that you would like help with: None Currently or been in a relationship where the following occur: No concerns reported THRIVE Score: 0 AUDIT C Alcohol Use Questionnaire (AUDIT-C) 1. How often do you have a drink containing alcohol?: Never 3. How often do you have six or more drinks on one occasion?: Never Total Score: 0 IRMA-7 AMB Questionnaire IRMA-7 Date IRMA - 7 assessed: 05/06/24 Feeling nervous, anxious, or on edge: 0 = Not at all Not being able to stop or control worryin = Not at all Worrying too much about different things: 0 = Not at all Trouble relaxin = Not at all Being so restless that it is hard to sit still: 0 = Not at all Becoming easily annoyed or irritable: 0 = Not at all Feeling afraid as if something awful might happen: 0 = Not at all Total IRMA-7 score (0-4 normal; 5-9 mild; 10-14 moderate; 15-21 severe): 0 Source: Developed by Drs. Chad Perkins, Michell Carrillo, Teodoro Stafford and colleagues, with an educational alexandra from [employer]. Review of Systems Const Denies chills, Denies fever(s), Denies headache(s) and Denies poor appetite Eyes Reports no additional complaints ENT Denies dysphagia, Denies dizziness, Denies headache(s) and Denies odynophagia Card Denies chest pain, Denies syncope, Denies edema, Denies irregular heart rhythm, Denies lightheadedness and Denies dyspnea Resp Denies dyspnea GI Denies abdominal pain, Denies dysphagia, Denies nausea, Denies odynophagia and Denies vomiting Reports no additional complaints Musc Reports no additional complaints and Denies abnormal gait Skin/Breast Reports system reviewed and no additional complaints, except as documented Neuro Denies abnormal gait, Denies dizziness, Denies syncope and Denies headache(s) Psych Reports no additional complaints Physical exam (Primary Care) Vital Signs: Last Vital Signs Pulse 69 11/02/24 07:45 BP 110/68 11/02/24 07:45 Pulse Ox 95 11/02/24 07:45 Oxygen Delivery Method Room Air 11/02/24 07:45 BMI result Body Mass Index 19.4 Tobacco/Smoking Status: Tobacco use Status Tobacco use date assessed 11/02/24 11/02/24 07:50 Patient Tobacco Use Status Current everyday Tobacco 11/02/24 07:50 Tobacco use type Cigarette 11/02/24 07:50 e-Cigarette/Vaping Use Never Used 11/02/24 07:50 Are you ready to quit: Yes Tobacco cessation counseling provided: Yes Items discussed: Nicotine replacement and Other (Wellbutrin, Chantix ) Relapse Prevention: weight gain after smoking is common and discussed dietary, exercise and/or lifestyle changes Number of minutes spent counselin CPT code: 63097 - 4-10 Minutes PHQ-9: PHQ-9 Score PHQ-9: Total score 0 11/02/24 08:56 Depression Screening Interpretation: Negative Thrive Assessment: Date of Thrive Assessment Date Thrive assessed 10/26/24 11/02/24 07:50 Currently or been in a relationship where the following occur: No concerns reported Const General: cooperative, healthy appearing, comfortable and no acute distress Orientation/consciousness: patient oriented x3 [facility] Head: Yes normocephalic Ears: hearing grossly normal bilaterally General nose exam: Normal external nose present Eyes General: appearance normal, both eyes and all related structures Conjunctivae: conjunctivae normal Neck Neck: Yes full ROM and Yes no lymphadenopathy Resp Effort & Inspection: normal respiratory effort Auscultation: clear to auscultation bilaterally, no crackles, no rales, no rhonchi and no wheezes Cardio Rate: regular rate Rhythm: regular rhythm Other: Steamer Gum Candy was offered and declined today Female genitals images: 2 1. Very small nontender bump without surrounding erythema or skin changes Skin General skin exam: no rashes or lesions noted Full body images: 2 1. Biopsy site without surrounding erythema or evidence of infection and no drainage Neuro General: patient oriented x3 Gait exam (Neuro): Normal gait present Extrem General: Yes normal to inspection, Yes full ROM and No edema Psych Affect: normal affect Attitude: cooperative Insight: Good insight present (Psych) Judgement: Good judgement present (Psych) Results AMB Urinalysis Dipstick 2 UR Leukocytes Negative Last Edit by Nnamdi John MA on 11/02/24 09:56 UR Nitrite Negative Last Edit by Nnamdi John MA on 11/02/24 09:56 UR Urobilinogen Normal Last Edit by Nnamdi John MA on 11/02/24 09:56 UR Protein Negative Last Edit by Nnamdi John MA on 11/02/24 09:56 UR Ph 7.0 Last Edit by Nnamdi John MA on 11/02/24 09:56 UR Blood Negative Last Edit by Nnamdi John MA on 11/02/24 09:56 UR Specific [place] 1.005 Last Edit by Nnamdi John MA on 11/02/24 09:5 6 UR Ketone Negative Last Edit by Nnamdi John MA on 11/02/24 09:56 UR Bilirubin Negative Last Edit by Nnamdi John MA on 11/02/24 09:56 UR Glucose Negative Last Edit by Nnamdi John MA on 11/02/24 09:56 Coding Level of Care Code Est Pt Level 4 (13178) Diagnoses Panic disorder F41.0 Thyroid nodule E04.1 Graves disease E05.00 Chronic GERD K21.9 Bilateral breast cancer C50.911; C50.912 Lumbar radicular pain M54.16 Atrophic vaginitis N95.2 Tobacco use disorder F17.200 Vaginal lump N94.9 Additional Codes Vital Signs *Quality* - CPT code: 48491 - 4-10 Minutes ([id number]) Assessment & Plan Assessment & Plan (1) Panic disorder: Code(s): F41.0 - Panic disorder [episodic paroxysmal anxiety] Category: Medical Plan: Continue to use alprazolam as needed. (2) Thyroid nodule: Code(s): E04.1 - Nontoxic single thyroid nodule Category: Medical Plan: Continue to monitor with blood work and is no longer following with endocrinology. (3) Graves disease: Code(s): E05.00 - Thyrotoxicosis with diffuse goiter without thyrotoxic crisis or storm Category: Medical Plan: See above (4) Chronic GERD: Code(s): K21.9 - Gastro-esophageal reflux disease without esophagitis Category: Medical Plan: Avoid trigger foods such as citrus, tomato products, soda, caffeine, spicy foods and other foods that may be irritating to your stomach. Avoid laying flat 3-4 hours after eating and elevate the head of the bed 30 degrees to prevent acid from moving into the esophagus. (5) Bilateral breast cancer: Comment: @ 39, 53, 58 with radiation Code(s): C50.911 - Malignant neoplasm of unspecified site of right female breast; C50.912 - Malignant neoplasm of unspecified site of left female breast Category: Medical Plan: The patient has a history of breast cancer with previous radiation therapy. No current follow-up with oncology, but yearly mammograms are not performed due to skin condition post-implant removal. (6) Lumbar radicular pain: Code(s): M54.16 - Radiculopathy, lumbar region Category: Medical Plan: Continue use cyclobenzaprine as needed for pain. (7) Atrophic vaginitis: Code(s): N95.2 - Postmenopausal atrophic vaginitis Category: Medical Plan: The patient is exploring non-estrogenic options for managing vaginal dryness due to her history of breast cancer. Recommendations include [id number]-[id number] lubricants and potential supplements, with further evaluation of ingredients for safety. Urinalysis in the office is negative. (8) Tobacco use disorder: Code(s): F17.200 - Nicotine dependence, unspecified, uncomplicated Category: Medical Plan: Smoking cigarettes and the use of tobacco can be harmful. We discussed the importance of stopping and options to aid in smoking cessation. The patient continues to smoke and has expressed interest in retrying Chantix despite previous depressive symptoms. Nicotine replacement therapy options were discussed, including patches and gum, with caution advised regarding timing to avoid nightmares. (9) Vaginal lump: Code(s): N94.9 - Unspecified condition associated with female genital organs and menstrual cycle Category: Medical Plan: Unclear etiology of vaginal lump however does not look infectious at this time. She denies any associated symptoms of tenderness or irritation does not feel the lump has been growing. Recommending following up with gynecology Plan During the visit, we discussed the patient's ongoing management of breast cancer history, including the avoidance of estrogen due to previous cancer treatment. We reviewed options for managing vaginal dryness, emphasizing non-estrogenic alternatives. The patient expressed interest in retrying Chantix for smoking cessation, and we discussed potential side effects and the use of nicotine replacement therapy. We also addressed the patient's insomnia management with alprazolam and planned further evaluation for urinary symptoms. This note was constructed using voice recognition software. While every effort has been made to ensure accuracy and pump attendant, still areas may have been included sometimes these areas may affect the content or meeting of the given symptoms. Total time spent caring for the patient today was 20 minutes. This includes time spent before the visit reviewing the chart, time spent during the visit, and time spent after the visit and documentation. Patient was informed and verbally consented to the use of an ambient scribe for clinic note documentation during this visit. Orders: Orders 2 Vitamin D 25-OH Total Today E55.9 - Vitamin D deficiency, unspecified, Z13.21 - Encounter for screening for nutritional disorder Free T4 (Free Thyroxine) Today E05.00 - Thyrotoxicosis with diffuse goiter without thyrotoxic crisis or storm, Z00.00 - Encounter for general adult medical examination without abnormal findings Complete Blood Count Auto Diff Today N94.9 - Unspecified condition associated with female genital organs and menstrual cycle, Z00.00 - Encounter for general adult medical examination without abnormal findings Comprehensive Met. Panel Today N94.9 - Unspecified condition associated with female genital organs and menstrual cycle, Z00.00 - Encounter for general adult medical examination without abnormal findings Lipid Panel Today Z13.220 - Encounter for screening for lipoid disorders AMB Urinalysis Dipstick Today Z13.9 - Encounter for screening, unspecified TSH reflex Free T4 Today E05.00 - Thyrotoxicosis with diffuse goiter without thyrotoxic crisis or storm, Z13.29 - Encounter for screening for other suspected endocrine disorder Vitamin B12 and Folate Today Z13.21 - Encounter for screening for nutritional disorder Medications: New 2 varenicline tartrate (Chantix Starting Month Box) PO PER PKG DIR 53 ea 0RF Refilled 2 mastectomy bra (bra, mastectomy) As directed 1 ea 4RF
== END 2024-11-02 09:08 | disposition home or self-care (01) ==
LOC: HO.HMCH 07:40
PROVIDERS: PCP Internal Medicine
DX: E04.1 Nontoxic single thyroid nodule (principal); F41.0 Panic disorder [episodic paroxysmal anxiety]; C50.911 Malignant neoplasm of unspecified site of right female breast; C50.912 Malignant neoplasm of unspecified site of left female breast; E05.00 Thyrotoxicosis with diffuse goiter without thyrotoxic crisis or storm; K21.9 Gastro-esophageal reflux disease without esophagitis; M54.16 Radiculopathy, lumbar region; N95.2 Postmenopausal atrophic vaginitis; F17.210 Nicotine dependence, cigarettes, uncomplicated; N94.9 Unspecified condition associated with female genital organs and menstrual cycle; Z13.9 Encounter for screening, unspecified

== ENCOUNTER → 2024-11-02 07:39 | Outpatient (BNVA) | payer MEDICARE, SELFPAY | PROVIDERS: PCP Internal Medicine | DX: K21.9 Gastro-esophageal reflux disease without esophagitis (principal); E05.00 Thyrotoxicosis with diffuse goiter without thyrotoxic crisis or storm; F41.0 Panic disorder [episodic paroxysmal anxiety]; E04.1 Nontoxic single thyroid nodule; C50.911 Malignant neoplasm of unspecified site of right female breast; C50.912 Malignant neoplasm of unspecified site of left female breast; M54.16 Radiculopathy, lumbar region; N95.2 Postmenopausal atrophic vaginitis; F17.210 Nicotine dependence, cigarettes, uncomplicated; N94.9 Unspecified condition associated with female genital organs and menstrual cycle | CPT/HCPCS: 81002; 96127; 99212 ==

== ENCOUNTER 2024-11-04 06:02 | Outpatient (REF) | payer MEDICARE, SELFPAY ==
--- OUTSIDE RECORDS SUMMARY | 2024-11-04 06:06 | XMS_ITS | Patient Health Record ---
Author Organization [facility] Address [address] [place] [address] Care Team Providers Care Hypertrichologist Name Role Phone Rico Tran MD Primary Care Provider Chad Nguyen Unavailable [phone] Allergies Allergen (clinical drug ingredient) Drug/Non Drug [...] Problem Status W/U Status Risk Notes Problem [id number] Encounter for screening for malignant neoplasm of colon (Z12.11) Active confirmed Problem [id number] Irritable bowel syndrome with diarrhea (K58.0) Active confirmed Problem Diverticulosis of colon (078729408) Diverticulosis of colon (K57.30) Active confirmed Encounters Encounter Location Date Provider Diagnosis [facility] [address] [place] [address] 11/06/2023 Chad Calvillo Plan Of Treatment Future Test Test Name Order Date COLONOSCOPY 07/29/2013 COLONOSCOPY 01/17/2021 Insurance Providers Payer Name Payer Address Payer Phone Subscriber Number Group Number Insured Name Patient Relationship to Insured Coverage Start Date Coverage End Date MEDICARE OF [place] [address] [place] [id number] BONNIE CROFT Self - patient is the insured [employer] ATT[employer] CLAIMS [address] [place] [address] [id number] BONNIE CROFT Self - patient is the insured Medical (General) History Medical History History ICD Code Upper endoscopy 08-24-2010-negative--norm al duodenal and gastric biopsies Colonoscopy 08-20-2007-1 small serrated adenoma removed GERD Grave's disease-sees [facility] Endocrinology-Sundar Sandoval Denies [place],DM,CVA,Lung disease,renal dise ase Breast cancer--bilateral--on left at age 39 and the right in 2008 Depression Negative screening colonoscopy in 06/2014 Surgical History Surgery Date(Month/Year) Bilateral mastectomy for can cer in 1995 and in 2008, with reconstructive surgery New breast implant on the left at [facility] in 2011 Laparoscopy in her 20's
[2024-11-04 10:18] LABS: MANUAL DIFF FLAG NO
[2024-11-04 10:19] LABS: Hematocrit 43.6 % (37.0-47.0); Hemoglobin 14.8 g/dl (12.0-16.0); Imm Gran Abs Auto 0.02 X10*3/uL (0.00-0.03); Imm Gran Pct Auto 0.3 % (0.0-0.4); Lymphocytes Absolute Auto 1.8 X10*3/uL (1.2-4.9); Mean Corpuscular HGB Conc 33.9 g/dl (31.0-35.0); Mean Corpuscular Hemoglobin 32.3 pg (27.0-33.0); Mean Corpuscular Volume 95.2 fL (80.0-98.0); NRBC Abs Auto 0.000 X10*3/uL (0.0-0.012); NRBC Pct Auto 0.0 /100WBC (0.0-0.2); Platelet Count 265 X10*3/uL (160-400); Red Blood Count 4.58 X10*6/uL (4.20-5.50); White Blood Count 5.9 X10*3/uL (4.8-10.8)
[2024-11-04 10:50] LABS: Alanine Aminotransferase 16 U/L (0-31); Albumin Level 4.7 g/dL (3.5-5.0); Alkaline Phosphatase 74 U/L (39-117); Anion Gap 13 (12-20); Aspartate Amino Transferase 27 U/L (5-31); Blood Urea Nitrogen 10 mg/dL (9-16); Calcium 9.6 mg/dL (8.4-10.2); Carbon Dioxide 28 mmol/L (22-29); Chloride 103 mmol/L (96-108); Cholesterol 243 mg/dL (<200); Estimated Glomerular Filt Rate > 60; HDL Cholesterol 75 mg/dL (>40); Potassium 3.9 mmol/L (3.3-5.1); Sodium 140 mmol/L (135-145); Total Protein 7.3 g/dL (6.5-8.0); Triglycerides 89 mg/dL (<150)
[2024-11-04 11:01] LABS: Free T4 (Free Thyroxine) 0.91 ng/dL (0.71-1.85)
[2024-11-04 11:03] LABS: Folate 14.3 ng/mL (> or = 4.0); Vitamin B12 539 pg/mL (200-900)
== END 2024-11-04 06:03 | disposition home or self-care (01) ==
LOC: HO.HMGCLDS 06:02
DX: Z00.00 Encounter for general adult medical examination without abnormal findings (principal); Z13.21 Encounter for screening for nutritional disorder; Z13.220 Encounter for screening for lipoid disorders; Z13.29 Encounter for screening for other suspected endocrine disorder; E55.9 Vitamin D deficiency, unspecified; E05.00 Thyrotoxicosis with diffuse goiter without thyrotoxic crisis or storm; N94.9 Unspecified condition associated with female genital organs and menstrual cycle
CPT/HCPCS: 36415; 80053; 80061; 82306; 82607; 82746; 84439; 84443; 85025

== ENCOUNTER 2025-01-10 15:03 | Outpatient (AMB) | payer MEDICARE, SELFPAY ==
[2025-01-10 15:12] VITALS: BP 110/64; BMI 18.9
--- NOTE | 2025-01-10 15:12 | A.OFFVIS_ITS ---
Vital Signs 01/10/25 15:12 Height 5 ft 6 in Weight 117 lb BMI 18.9 BP 110/64 Intake Visit Reasons: vaginitis Machine Pecan Gatherer Required: No Information Interpreted: non-clinical & clinical Web Press Operator Helper Offset: Web Press Operator Helper Offset Present (Jacki Cash NATHANIEL) Accompanied by: Self / Same As Patient Allergies benzoin Allergy (Unknown, Verified 01/10/25 15:17) Rash fluoxetine (Prozac) Allergy (Unknown, Verified 01/10/25 15:17) Hives hydrocodone (From VICODIN) Adverse Reaction (Intermediate, Verified 01/10/25 15:17) AGITATION oxycodone (From Percocet) Adverse Reaction (Mild, Verified 01/10/25 15:17) AGITATION steri strips Allergy (Unknown, Uncoded 01/10/25 15:17) Unknown Post menopausal: Yes HPI Comments Details: Presenting complaining of a right labial lesion that appeared few months ago nontender no itching no irritation or any other symptoms no vaginal discharge or bleeding PFSH Medical History COVID-19 vaccine series completed PONV (postoperative nausea and vomiting) Smoker Breast cancer GERD (gastroesophageal reflux disease) IBS (irritable bowel syndrome) Vitamin D deficiency Panic disorder Neutropenia Thyroid nodule Graves disease Abdominal pain Depression Surgical History Hx of esophagogastroduodenoscopy Hx of colonoscopy S/P breast implant, left History of removal of right breast implant History of bilateral mastectomy Family History Father Throat cancer Mother Lung cancer Maternal Grandmother Breast cancer Social History Household Members: None Housing: Condominium Are you a primary care management coordinator to a significant other at home: No Do you presently have visiting nurse or other home services: No Alcohol intake: never Patient Tobacco Use Status: Current everyday Tobacco user Tobacco use type: Cigarette Cigarette Packs Per Day: 1 Cigarettes Per Day: 20.0 Years Smoked: 45 e-Cigarette/Vaping Use: Never Used Second Hand Smoke Exposure: Yes service: No Current occupational status: retired Sexually active: No Sexual orientation: Straight/Heterosexual Gender identity: Female Cognitive needs: No Hearing needs: No Vision needs: Yes Review of Systems Const All systems reviewed & are unremarkable except as noted in HPI and below Physical Exam Vital Signs: Last Vital Signs BP 110/64 01/10/25 15:12 BMI result Body Mass Index 18.9 General: Yes no CVA tenderness External Female Exam: No normal external appearance (Right 0.3 cm sebaceous cyst) and normal appearance of the urethra Speculum Exam - Vagina: normal appearance of the vagina, normal palpation, no lesions and no masses Speculum Exam - Cervix: normal appearance of the cervix, normal palpation, no lesions, no masses and nontender Bimanual exam- vagina & uterus: normal bimanual exam, normal palpation, uterine size normal, normal palpation, uterine shape normal, No Cervical tenderness present and non-tender Bimanual Exam- Adnexa, other: normal adnexae Back/Spine/Pelvis Back: no CVA tenderness Assessment & Plan Assessment & Plan (1) Sebaceous cyst of labia: Comment: Right side Code(s): N90.7 - Vulvar cyst Category: Medical Plan: Discussed with the patient the finding on pelvic exam showing a 0.3 cm right sebaceous cyst, instructions given the patient to call if cyst growth become tender or erythematous or any other concerns. All questions answered, the patient verbalized understanding Coding Level of Care Code New Pt Level 3 (83049) Diagnoses Sebaceous cyst of labia N90.7
== END 2025-01-10 15:34 | disposition home or self-care (01) ==
LOC: HO.HWS 15:04
PROVIDERS: Visit Provider Obstetrics & Gynecology
DX: N90.7 Vulvar cyst (principal)
CPT/HCPCS: 99203

== ENCOUNTER → 2025-01-10 15:03 | Outpatient (BNVA) | payer MEDICARE, SELFPAY | PROVIDERS: Visit Provider Obstetrics & Gynecology | DX: N90.7 Vulvar cyst (principal) | CPT/HCPCS: 99202 ==